=== PATIENT | male | born 1945 | race African-American/Black ===

== ENCOUNTER 2018-01-31 11:48 | Observation (INO) | payer MEDICARE ==
[2018-01-31 13:12] LABS: #Basophils 0.1 thou/uL (0.0-0.2); #Eosinphils 0.2 thou/uL (0.0-0.7); #Lymphocytes 2.2 thou/uL (1.20-3.40); #Monocytes 0.5 thou/uL (0.11-0.59); #Neutrophils 4.2 thou/uL (1.40-6.50); %Basophils 1.2 % (0.0-1.0); %Eosinophils 2.3 % (0.0-10.0); %Lymphocytes 31.2 % (21.0-51.0); %Monocytes 6.7 % (0.0-10.0); %Neutrophils 58.6 % (42.0-75.0); Hemoglobin 13.6 g/dL (14.0-18.0); Mean Corpuscular HGB CONC 33.1 g/dL (32.0-36.0); Mean Corpuscular Hemoglobin 30.5 pg (27.0-31.0); Mean Corpuscular Volume 92.3 fl (80.0-94.0); Mean Platelet Volume 7.1 fL (7.4-10.4); Platelet Count 256 thou/uL (130-400); RBC Distribution Width 12.9 % (11.5-14.5); Red Blood Cell (RBC) Count 4.46 mill/uL (4.70-6.10); White Blood Cell (WBC) Count 7.1 thou/uL (4.8-10.8)
[2018-01-31 13:31] LABS: CKMB 0.8 ng/mL (0-6.6); Troponin I Less than 0.010 ng/mL (< 0.028)
[2018-01-31 13:38] LABS: ALT (SGPT) 25 U/L (8-55); AST (SGOT) 20 U/L (5-34); Albumin 3.9 g/dL (3.4-4.8); Alkaline Phosphatase 81 U/L (40-150); Anion Gap 11 mmol/L (10-20); BUN (Urea Nitrogen) 14 mg/dL (8.4-25.7); Bilirubin, Total 0.5 mg/dL (0.2-1.2); CK (CPK) 96 U/L (30-200); Calc. Creatinine Clearance 0 mL/min (70-130); Calcium 9.1 mg/dL (7.8-10.44); Carbon Dioxide 24 mmol/L (23-31); Chloride 106 mmol/L (98-107); Estimated GFR-MDRD Greater than 90; Globulin 2.3 g/dL (2.4-3.5); Glucose 118 mg/dL (83-110); Lipase 28 U/L (8-78); Potassium 3.6 mmol/L (3.5-5.1); Protein, Total 6.2 g/dL (5.8-8.1); Sodium 137 mmol/L (136-145)
[2018-01-31 14:28] LABS: Bilirubin Negative (Negative); Blood, Urine Negative (Negative); Clarity CLEAR (Clear); Glucose, Urine (Dipstick) Negative (Negative); Leukocyte Negative (Negative); Nitrite Negative (Negative); Protein, Urine (Dipstick) Negative (Neg-Trace); Specific Gravity, Urine 1.012 (1.002-1.036); Urobilinogen 0.2 mg/dL (0.2-1.0)
--- NOTE | 2018-01-31 14:36 | CT ---
HEAD CT WITHOUT CONTRAST: Date: 01/31/18 COMPARISON: None. HISTORY: Intermittent headaches with dizziness and weakness. TECHNIQUE: Serial axial CT imaging at 5 mm intervals from vertex through skull base without contrast. FINDINGS: The imaged paranasal sinuses/mastoid air cells are well aerated. There is no displaced calvarial frac ture. There is atherosclerotic calcification involving the cavernous carotid arteries. There is no intracra nial hemorrhage, midline shift, mass effect, or ventricular enlargement. IMPRESSION: No acute findings. POS: [facility]
[2018-01-31] MEDS ORDERED: Acetaminophen 325 MG TAB PO PRN ×2 (14:38→15:21)
--- NOTE | 2018-01-31 14:43 | RAD ---
PORTABLE CHEST: Date: 01/31/18 HISTORY: Syncope. COMPARISON: 04/26/15 study. FINDINGS: Heart size is within normal limits. Aorta is tortuous with some atherosclerotic change. Lungs are ashu ar of infiltrates. IMPRESSION: No active intrathoracic disease. POS: [facility]
[2018-01-31 16:24] VITALS: BMI 25.0
[2018-01-31] MEDS ORDERED: Ondansetron HCl/PF 4 MG/2 ML Vial IVP PRN (16:37)
[2018-01-31] MEDS ORDERED: Ondansetron ODT 4 MG TAB SL PRN (16:37)
[2018-01-31 17:05] LABS: Troponin I Less than 0.010 ng/mL (< 0.028)
[2018-01-31 19:54] LABS: Troponin I Less than 0.010 ng/mL (< 0.028)
[2018-01-31] MEDS ORDERED: Aspirin 81 mg Enteric Coated Tablet PO SCH (21:00)
[2018-01-31] MEDS ORDERED: Atorvastatin Calcium 40 MG TAB PO SCH (21:00)
[2018-01-31] MEDS ORDERED: Acetaminophen 325 MG TAB PO SCH (21:00)
[2018-02-01 05:15] LABS: Anion Gap 10 mmol/L (10-20); BUN (Urea Nitrogen) 12 mg/dL (8.4-25.7); Calc. Creatinine Clearance 78 mL/min (70-130); Calcium 8.5 mg/dL (7.8-10.44); Carbon Dioxide 25 mmol/L (23-31); Chloride 109 mmol/L (98-107); Estimated GFR-MDRD Greater than 90; Glucose 93 mg/dL (83-110); Potassium 3.5 mmol/L (3.5-5.1); Sodium 140 mmol/L (136-145)
[2018-02-01] MEDS ORDERED: Senokot 8.6 MG TAB PO PRN (07:52)
[2018-02-01] MEDS ORDERED: Chloraseptic Spray 180 ml Bottle PO PRN (07:52)
[2018-02-01] MEDS ORDERED: Sodium Chloride 0.65% Nasal 44 ML BOT EA NARE PRN (07:52)
[2018-02-01] MEDS ORDERED: Ondansetron ODT 4 MG TAB PO PRN (07:52)
[2018-02-01] MEDS ORDERED: Ondansetron HCl/PF 4 MG/2 ML Vial IVP PRN (07:52)
[2018-02-01] MEDS ORDERED: Mag-Al 1200 mg/1200 mg/30 ML UDCUP PO PRN (07:52)
[2018-02-01] MEDS ORDERED: Eucerin (Mineral Oil/Petrolatum,White) 30 gm Jar TOP PRN (07:52)
[2018-02-01] MEDS ORDERED: hydrALAZINE 20 MG/ML VIAL SLOW IVP PRN (07:52)
[2018-02-01] MEDS ORDERED: Temazepam 15 MG CAP PO PRN (07:52)
[2018-02-01] MEDS ORDERED: HYDROcodone/Acetaminophen 5/325 mg Tablet PO PRN (07:52)
[2018-02-01] MEDS ORDERED: Milk Of Magnesia 30 ML UDCUP PO PRN (07:52)
[2018-02-01] MEDS ORDERED: Diabetic Tussin 200 MG/10 ML UDCUP PO PRN (07:52)
[2018-02-01] MEDS ORDERED: Famotidine 20 MG TAB PO SCH (09:00)
[2018-02-01] MEDS ORDERED: Amlodipine 10 MG TAB PO SCH (09:00)
[2018-02-01] MEDS ORDERED: levETIRAcetam 500 MG TAB PO SCH (09:00)
[2018-02-01] MEDS ORDERED: Losartan 25 MG TAB PO SCH (09:00)
--- NOTE | 2018-02-01 09:07 | CON ---
DATE OF CONSULTATION: 02/01/2018 CONSULTING PHYSICIAN: Hospitalist Service IMPRESSION: New onset seizure. PLAN: 1. MRI of the brain. 2. Keppra 500 mg twice a day. 3. Outpatient followup. Mr. Chávez is a 72-year-old man with history of coronary artery disease. He was at the [employer] shop sit ting in the chair when he suddenly lost consciousness. Witnesses report that his eyes rolled up and he had what appeared to be a tonic clonic seizure. He did not awaken until the EMS had arrived. He was transported here for evaluation. A CT scan of the brain was unremarkable. His lab work was unre markable as well. He has never had anything like this in the past. He denies a past history of head injury, meningitis, encephalitis or stroke. PAST MEDICAL HISTORY: Coronary artery disease. ALLERGIES: PENICILLIN. MEDICATIONS: As per chart. SOCIAL HISTORY: No tobacco or alcohol use. FAMILY HISTORY: Noncontributory. REVIEW OF SYSTEMS: No complaint of nausea, vomiting, dizziness, blurred vision, double vision, later alized weakness or numbness. Positive for some intermittent shooting pains in his head. PHYSICAL EXAMINATION: GENERAL: He is a healthy appearing elderly man in no distress. VITAL SIGNS: Pulse 60, respirations 16. He is afebrile. HEENT: Pupils equal and reactive. Conjunctivae clear. Oropharynx clear. NEUROLOGIC: He is alert and appropriate. His speech is fluent and clear. His exam is nonfocal. EKG shows normal sinus rhythm. SUMMARY: This is an elderly gentleman who presented with a generalized tonic clonic seizure. There does not appear to be any provoking factors, no structural etiology has been identified at this point . There does not appear to be an infectious process or metabolic etiology. Given that he is very ac tive and on the road on a regular basis I would go ahead and start him on anticonvulsant and complete his work up with an MRI of the brain.
[2018-02-01] MEDS: Carvedilol 3.125 MG TAB PO SCH ×2 (09:19→17:10)
--- NOTE | 2018-02-01 09:44 | ULT ---
CAROTID DUPLEX ULTRASOUND: INDICATIONS: Syncope. FINDINGS: The carotid waveforms appear within normal limits. The peak systolic velocity within the right CCA i s 0.99 meters per second and in the left CCA is 0.81 meters per second. The peak systolic velocity i n the right ICA is 0.94 meters per second and in the left ICA is 0.66 meters per second. The right ICA/CCA is 0.95 and the left is 0.82. Antegrade flow is seen in both vertebral arteries. IMPRESSION: No hemodynamically significant stenosis demonstrated. POS: [facility]
[2018-02-01 11:36] VITALS: TEMP 97.5
--- NOTE | 2018-02-01 11:47 | PDOC.PN ---
- Subjective Encounter Start Date: 02/01/18 Encounter Start Time: 07:20 Patient seen and examined. No new complaints. No overnight events - Objective MAR Reviewed: Yes Vital Signs & Weight: Vital Signs (12 hours) Temp Pulse Resp BP BP Pulse Ox 02/01/18 11:05 97.5 F L 62 18 153/77 H 99 02/01/18 09:19 76 183/79 H 02/01/18 07:08 97.9 F 76 20 183/79 H 96 02/01/18 04:00 97.8 F 61 18 141/84 H 95 02/01/18 00:18 94 L Weight Weight 150 lb 11.2 oz I&O: 01/31/18 02/01/18 02/02/18 06:59 06:59 06:59 Intake Total 620 Balance 620 Result Diagrams: 01/31/18 12:53 02/01/18 04:48 Radiology Reviewed by me: Yes EKG Reviewed by me: Yes Phys Exam - Physical Examination Constitutional: NAD HEENT: PERRLA, moist MMs, sclera anicteric Neck: no JVD, supple Respiratory: no wheezing, no rales, no rhonchi Cardiovascular: RRR, no significant murmur, no rub Gastrointestinal: soft, non-tender, no distention, positive bowel sounds Musculoskeletal: no edema, pulses present Neurological: non-focal, normal sensation, moves all 4 limbs Lymphatic: no nodes Psychiatric: normal affect, A&O x 3 Skin: no rash, normal turgor Dx/Plan (1) Seizure Code(s): R56.9 - UNSPECIFIED CONVULSIONS Status: Acute (2) Syncope Code(s): R55 - SYNCOPE AND COLLAPSE Status: Acute (3) CAD (coronary artery disease) Code(s): I25.10 - ATHSCL HEART DISEASE OF [place] CORONARY ARTERY W/O ANG PCTRS Status: Chronic (4) Dyslipidemia Code(s): E78.5 - HYPERLIPIDEMIA, UNSPECIFIED Status: Chronic (5) Hypertension Code(s): I10 - ESSENTIAL (PRIMARY) HYPERTENSION Status: Chronic - Plan cont current plan of care * neurology suspecting seizure, keppra started * today EEG, MRI and echo * carotid us is normal * discharge later today * medication reviewed as below * symptomatic treatment * resume home meds. Review of Systems - Review of Systems ENT: negative: Ear Pain, Ear Discharge, Nose Pain, Nose Discharge, Nose Congestion, Mouth Pain, Mouth Swelling, Throat Pain, Throat Swelling, Other Respiratory: negative: Cough, Dry, Shortness of Breath, Hemoptysis, SOB with Excertion, Pleuritic Pain, Sputum, Wheezing Cardiovascular: negative: chest pain, palpitations, orthopnea, paroxysmal nocturnal dyspnea, edema, light headedness, other Gastrointestinal: negative: Nausea, Vomiting, Abdominal Pain, Diarrhea, Constipation, Melena, Hematochezia, Other Genitourinary: negative: Dysuria, Frequency, Incontinence, Hematuria, Retention , Other Musculoskeletal: negative: Neck Pain, Shoulder Pain, Arm Pain, Back Pain, Hand Pain, Leg Pain, Foot Pain, Other Skin: negative: Rash, Lesions, Chapo, Bruising, Other Neurological: negative: Weakness, Numbness, Incoordination, Change in Speech, Confusion, Seizures, Other - Medications/Allergies Allergies/Adverse Reactions: Allergies Allergy/AdvReac Type Severity Reaction Status Date / Time Penicillins Allergy Verified 01/17/15 12:04 Medications: Current Medications Acetaminophen (Tylenol) 650 mg PO Q4H PRN PRN Reason: Headache/Fever or Mild Pain Hydrocodone Bitart/Acetaminophen ([place] 5/325) 1 tab PO Q4H PRN PRN Reason: Moderate Pain (4-6) Al Hydroxide/Mg Hydroxide (Maalox) 15 ml PO Q4H PRN PRN Reason: Heartburn or Indigestion Amlodipine Besylate (Norvasc) 10 mg PO DAILY [facility] Last Admin: 02/01/18 09:19 Dose: 10 mg Aspirin (Ecotrin) 81 mg PO [facility] Last Admin: 01/31/18 21:18 Dose: 81 mg Atorvastatin Calcium (Lipitor) 80 mg PO [facility] Last Admin: 01/31/18 21:18 Dose: 80 mg Carvedilol (Coreg) 1.5625 mg PO BID-[facility] Last Admin: 02/01/18 09:19 Dose: 1.5625 mg Famotidine (Pepcid) 20 mg PO BID [facility] Last Admin: 02/01/18 09:19 Dose: 20 mg Guaifenesin (Robitussin Sf) 200 mg PO Q4H PRN PRN Reason: Cough Hydralazine HCl (Apresoline) 10 mg SLOW IVP Q4H PRN PRN Reason: Systolic BP > 180 Isosorbide Mononitrate (Imdur) 30 mg PO DAILY [facility] Last Admin: 02/01/18 09:19 Dose: 30 mg Levetiracetam (Keppra) 500 mg PO BID [facility] Last Admin: 02/01/18 11:34 Dose: 500 mg Losartan Potassium (Cozaar) 100 mg PO DAILY [facility] Last Admin: 02/01/18 09:18 Dose: 100 mg Magnesium Hydroxide (Milk Of Magnesium) 30 ml PO DAILYPRN PRN PRN Reason: Constipation Mineral Oil/White Petrolatum (Eucerin Cream) 0 gm TOP BIDPRN PRN PRN Reason: Dry Skin Ondansetron HCl (Zofran Odt) 4 mg PO Q6H PRN PRN Reason: Nausea/Vomiting Ondansetron HCl (Zofran) 4 mg IVP Q6H PRN PRN Reason: Nausea/Vomiting Phenol (Chloraseptic [place] 180 Ml Bot) 0 ml PO PRN PRN PRN Reason: Sore Throat Senna (Senokot) 2 tab PO HSPRN PRN PRN Reason: Constipation Sodium Chloride ([place] Nasal [place] 0.65%) 0 ml EA NARE QIDPRN PRN PRN Reason: Nasal Congestion Sodium Chloride (Flush - Normal Saline) 10 ml IVF Q12HR [facility] Last Admin: 02/01/18 09:23 Dose: 10 ml Sodium Chloride (Flush - Normal Saline) 10 ml IVF PRN PRN PRN Reason: Saline Flush Temazepam (Restoril) 15 mg PO HSPRN PRN PRN Reason: Insomnia
[2018-02-01 12:05] VITALS: BP 132/75
--- NOTE | 2018-02-01 12:56 | MRI ---
BRAIN MRI WITH AND WITHOUT CONTRAST: 02/01/2018 HISTORY: Syncope. Possible new onset seizures. COMPARISON: None. TECHNIQUE: Multiplanar, multisequence MR imaging of the brain is obtained with and without contrast, using a sei zure protocol. FINDINGS: The diffusion weighted imaging is limited secondary to artifact from oral metal. There is a vague fo cus of increased signal intensity within the dora, on the diffusion weighted imaging, which could rep resent a tiny focus of acute infarction, on the left, versus artifact. Diffusion weighted imaging is otherwise unremarkable. There is mild polypoid mucosal thickening involving the anterior ethmoid air cells on the left and th e left maxillary sinus. Arterial flow voids at the axial level of the skull base appear grossly unre markable on the T2 weighted imaging. Coronal thin section T1 weighted imaging through the hippocampi demonstrate symmetric structure, sign al intensity, and size of the hippocampi. The coronal gradient echo imaging demonstrates no evidence for blooming artifact to suggest abnormal calcification or intracranial hemorrhage. There is degenerative change at the atlantoaxial interspace. Regional bone marrow signal intensity a ppears grossly unremarkable. There are scattered foci of periventricular and deep white matter T2 and FLAIR hyperintensity, eviden ce of small vessel disease. Post contrast imaging demonstrates no abnormal enhancement within the brain parenchyma. IMPRESSION: Punctate focus of increased signal intensity is seen at the left aspect of the dora on the diffusion- weighted imaging; however, the diffusion-weighted imaging is limited on the basis of artifact. This finding may represent a punctate area of infarction versus artifact. Clinical correlation is sanjay nunez. The study appears grossly unremarkable, otherwise, aside from small vessel disease. POS: [facility]
--- NOTE | 2018-02-01 13:06 | DIS ---
DATE OF ADMISSION: 01/31/2018 DATE OF DISCHARGE: 02/01/2018 PRIMARY CARE PHYSICIAN: Dr. Randy Hilario DISCHARGE DISPOSITION: Home. PRIMARY DISCHARGE DIAGNOSIS: Seizure/syncope. SECONDARY DISCHARGE DIAGNOSES: Coronary artery disease, hypertension, dyslipidemia. PRIMARY PROCEDURE/OPERATION: EEG. RADIOLOGICAL INVESTIGATION: Chest x-ray, CT brain, MRI brain, carotid Doppler, and echocardiography will be done and result is pending. SIGNIFICANT LABS: Hemoglobin 13.6, creatinine 0.80. Cardiac enzymes negative x3. Urinalysis normal . DISCHARGE MEDICATIONS: Tylenol 650 mg p.o. b.i.d., amlodipine 10 mg p.o. daily, aspirin 81 mg p.o. d aily, Lipitor 80 mg p.o. at bedtime, Coreg 3.125 mg half tablet b.i.d., Imdur 30 mg p.o. daily, Keppr a 500 mg p.o. b.i.d., losartan 100 mg p.o. daily. CONTRAINDICATIONS: None. CODE STATUS: FULL CODE. INPATIENT CONSULTANTS: Dr. Ramon Green was consulted, who was suspecting seizure. TEST RESULTS PENDING ON DISCHARGE: Echocardiography. Official report of MRI brain. DISCHARGE PLAN: Post hospital, the patient is instructed to follow up with Dr. Ramon Green in 1 wee k. The patient will make appointment with primary care physician. HOSPITAL COURSE: A 72-year-old male who was admitted by Dr. Patterson. There is no H&P dictated by him at this point in the computer system, but based on my history, the patient was admitted for sync opal episode/seizure. We consulted Neurology. Initially, he had CT brain which was negative for any acute intracranial process. Chest x-ray was normal. Neurology was suspecting a seizure-type of act ivity and that is why they started Keppra. We did MRI brain which is essentially unremarkable. [place] tid Doppler is also unremarkable. We did an EEG official report is pending. Echocardiography will b e done before discharge and the patient is instructed to follow up on all test results with the [facility] as well as Neurology. He is pretty much stable. We are continuing all his home me dication. We are giving him a new prescription for Keppra as per Neurology. The patient is seen and examined at bedside today. Please see my progress note from today for furthe r detail. For H&P, we have to contact Dr. Patterson to dictate this patient's H and P.
--- NOTE | 2018-02-02 00:38 | HP ---
CHIEF COMPLAINT: Mental status change with possible new-onset seizure. HISTORY OF PRESENT ILLNESS: This is a 72-year-old gentleman with a past medical history significant for coronary artery disease, status post stents, who was in his nephew[employer] and subsequently lost consciousness and with jerky movements according to the people who would have witnessed the epi sode. Patient on recovery was slightly confused and noted a little bit of urinary incontinence, othe rwise, patient recovered fully. Patient has never had similar symptoms in the past except about 30 t o 40 years ago in the context of alcohol binge. Patient on presentation was noted to be hemodynamica lly stable. Initial evaluation of the brain is pretty much unremarkable. PAST MEDICAL HISTORY: As documented in the body of the history. ALLERGIES: PENICILLIN. MEDICATIONS: As documented in the datango. SOCIAL HISTORY: No alcohol, no tobacco, no illicit drug use. FAMILY HISTORY: No family history of seizure disorder. REVIEW OF SYSTEMS: As documented in the body of the history. All the other systems were reviewed an d found not to be significantly related to the presenting illness. LABORATORY INVESTIGATION: Unremarkable CBC. Chemistry is unremarkable. Urine tests are unremarkab le. Prolactin level, unremarkable. PHYSICAL EXAMINATION: GENERAL: Patient was found not to be in any obvious distress, nice gentleman who engaged in discussi on noted with the following vital signs. VITAL SIGNS: Afebrile with temperature 98.2, pulse 64, respiratory 16, O2 sat 98% with blood pressur e 155/83. HEENT: Unremarkable. Moist oral mucosa. NECK: Supple. No conjunctival injection or icterus. CARDIOVASCULAR SYSTEM: First and second heart sounds were heard. RESPIRATORY SYSTEM: Clear to auscultation. DIGESTIVE SYSTEM: Revealed a benign abdomen with positive bowel sounds. EXTREMITIES: No peripheral edema. SKIN: No new gross rash. LYMPHATICS: No peripheral lymphadenopathy. NEUROLOGIC: Alert and oriented. No lateralizing sign. IMPRESSION: 1. New-onset seizure, query cause. 2. History of coronary artery disease. 3. Vasculopathy. PLAN: 1. Patient has already been admitted, we will request for EEG, as the imaging studies so far has bee n unremarkable. 2. Neurology consultation. 3. Further management to be dependent on the clinical course as well as further recommendations from Neurology. We will defer the decision of seizure medications to Neurology.
--- NOTE | 2018-02-05 10:36 | EEG ---
Referring Physician: HAROON ESPINOZA EEG # [id number] TEST TYPE: ROUTINE PORTABLE INPATIENT REPORT: AN EEG USING THE INTERNATIONAL TEN-TWENTY SYSTEM OF ELECTRODE PLACEMENT WAS PERFORMED. The waking background is a 9 hertz alpha frequency. The patient remained awake throughout the study. Hyperventilation and photic stimulation were unremarkable. No epileptiform features were seen. IMPRESSION: THIS IS A NORMAL AWAKE EEG. Department Helper: MARISEL Painter Helper: [email or web address].LILY MUKHERJEE
== END 2018-02-01 18:47 | disposition home or self-care (01) ==
LOC: ERS 11:48 → 2SE 14:13
PROVIDERS: ADMIT Internal Medicine Nephrology; ATTEND Internal Medicine Nephrology
DX: G40.309 Generalized idiopathic epilepsy and epileptic syndromes, not intractable, without status epilepticus (principal); R55 Syncope and collapse; I25.10 Atherosclerotic heart disease of native coronary artery without angina pectoris; I10 Essential (primary) hypertension; E78.5 Hyperlipidemia, unspecified; I99.8 Other disorder of circulatory system; Z79.82 Long term (current) use of aspirin; Z79.899 Other long term (current) drug therapy; Z88.0 Allergy status to penicillin; Z98.890 Other specified postprocedural states
CPT/HCPCS: 70450; 70553; 71045; 80048; 80053; 81003; 82140; 82550; 82553; 83690; 83880; 84146; 84484 ×2; 85025; 85652; 86140; 93005; 93306; 93880; 95816; 95819; 96360; 97139 ×2; 99285; G0378; 36415

== ENCOUNTER 2018-03-08 06:53 | Day surgery (SDC) | payer MEDICARE ==
[2018-03-07 11:41] VITALS: BMI 25.1
[2018-03-08 08:03] LABS: Hemoglobin 14.8 g/dL (14.0-18.0); Mean Corpuscular HGB CONC 32.9 g/dL (32.0-36.0); Mean Corpuscular Hemoglobin 30.7 pg (27.0-31.0); Mean Corpuscular Volume 93.3 fl (80.0-94.0); Mean Platelet Volume 7.7 fL (7.4-10.4); Platelet Count 257 thou/uL (130-400); RBC Distribution Width 12.8 % (11.5-14.5); Red Blood Cell (RBC) Count 4.83 mill/uL (4.70-6.10)
[2018-03-08 08:04] LABS: INR-International Normal Ratio 1.1; PTT 29.5 SEC (22.9-36.1)
[2018-03-08 08:15] LABS: Anion Gap 12 mmol/L (10-20); BUN (Urea Nitrogen) 8 mg/dL (8.4-25.7); Calc. Creatinine Clearance 76 mL/min (70-130); Calcium 9.3 mg/dL (7.8-10.44); Carbon Dioxide 26 mmol/L (23-31); Chloride 108 mmol/L (98-107); Estimated GFR-MDRD Greater than 90; Glucose 90 mg/dL (83-110); Potassium 3.6 mmol/L (3.5-5.1); Sodium 142 mmol/L (136-145)
[2018-03-08] MEDS ORDERED: Lidocaine 1% (PF) 30 ML VIAL ONE (09:22)
[2018-03-08] MEDS ORDERED: Fentanyl 100 MCG/2 ML VIAL ONE (09:55)
[2018-03-08] MEDS ORDERED: Midazolam HCl 2 mg/2 ml Vial ONE (09:55)
--- NOTE | 2018-03-08 14:07 | EKG ---
Test Reason : PREOP Blood Pressure : / mmHG Vent. Rate : 061 BPM Atrial Rate : 061 BPM P-R Int : 176 ms QRS Dur : 092 ms QT Int : 418 ms P-R-T Axes : 056 010 052 degrees QTc Int : 420 ms Normal sinus rhythm Possible Inferior infarct (cited on or before 10-NOV-2013) Abnormal ECG Confirmed by CARLEE PINTO ([id number]) on 03/08/2018 2:06:39 PM Referred By: MANJINDER Confirmed By:CARLEE PINTO
== END 2018-03-08 13:45 | disposition home or self-care (01) ==
LOC: CCL 06:53
PROVIDERS: ATTEND Internal Medicine Cardiovascular Disease
PROC: 4A023N7 Measurement of Cardiac Sampling and Pressure, Left Heart, Percutaneous Approach (ICD-10-PCS; principal; 2018-03-08)
DX: I25.10 Atherosclerotic heart disease of native coronary artery without angina pectoris (principal); Z88.0 Allergy status to penicillin
CPT/HCPCS: 80048; 85027; 85610; 85730; 93005; 93458; C1769; 93010; 99152; J1644; J2001; J2250; J3010

== ENCOUNTER 2018-09-03 15:16 | Inpatient (IN) | payer MEDICARE ==
[2018-09-03 15:52] LABS: #Eosinphils 0.1 thou/uL (0.0-0.7); #Lymphocytes 1.8 thou/uL (1.20-3.40); #Monocytes 0.7 thou/uL (0.11-0.59); #Neutrophils 7.6 thou/uL (1.40-6.50); %Basophils 0.5 % (0.0-1.0); %Eosinophils 1.1 % (0.0-10.0); %Lymphocytes 17.6 % (21.0-51.0); %Monocytes 6.4 % (0.0-10.0); %Neutrophils 74.4 % (42.0-75.0); Hemoglobin 14.9 g/dL (14.0-18.0); Mean Corpuscular HGB CONC 32.2 g/dL (32.0-36.0); Mean Corpuscular Hemoglobin 30.8 pg (27.0-31.0); Mean Corpuscular Volume 95.6 fL (78.0-98.0); Mean Platelet Volume 7.2 fL (7.4-10.4); Platelet Count 272 thou/uL (130-400); RBC Distribution Width 13.3 % (11.5-14.5); Red Blood Cell (RBC) Count 4.85 mill/uL (4.70-6.10); White Blood Cell (WBC) Count 10.2 thou/uL (4.8-10.8)
[2018-09-03] MEDS ORDERED: Nitroglycerin 2% Ointment 1 INCH/1 GM Packet ONE (15:57)
[2018-09-03 16:11] LABS: ALT (SGPT) 37 U/L (8-55); AST (SGOT) 24 U/L (5-34); Albumin 4.1 g/dL (3.4-4.8); Alkaline Phosphatase 119 U/L (40-150); Anion Gap 9 mmol/L (10-20); BUN (Urea Nitrogen) 10 mg/dL (8.4-25.7); Bilirubin, Total 0.2 mg/dL (0.2-1.2); CK (CPK) 81 U/L (30-200); Calc. Creatinine Clearance 0 mL/min (70-130); Calcium 9.1 mg/dL (7.8-10.44); Carbon Dioxide 27 mmol/L (23-31); Chloride 104 mmol/L (98-107); Estimated GFR-MDRD Greater than 90; Globulin 2.8 g/dL (2.4-3.5); Glucose 92 mg/dL (83-110); Magnesium 2.3 mg/dL (1.6-2.6); Potassium 3.7 mmol/L (3.5-5.1); Protein, Total 6.9 g/dL (5.8-8.1); Sodium 136 mmol/L (136-145)
[2018-09-03 16:16] LABS: Troponin I Less than 0.010 ng/mL (< 0.028)
--- NOTE | 2018-09-03 17:24 | RAD ---
UPRIGHT PORTABLE CHEST 1 VIEW: Date: 09/03/18 HISTORY: 73-year-old male with history of dizziness. Left-sided chest pressure and nausea. COMPARISON: 01/31/18. FINDINGS: Monitor leads overlie the chest. Heart size within normal limits. The lungs are clear. IMPRESSION: No acute intrathoracic disease. Atherosclerosis of aorta. Stable from prior study. POS: [facility]
--- NOTE | 2018-09-03 17:33 | CT ---
BRAIN CT WITHOUT IV CONTRAST: 09/03/18 HISTORY: Hypertension, dizziness for two days, stroke. There is no focal mass or midline shift. No intra or extra-axial hemorrhage. Sinuses and mastoids are clear. No significant change from 01/31/18. IMPRESSION: No significant acute intracranial process. No mass or bleed. POS: [facility]
[2018-09-03 18:26] LABS: Bilirubin Negative (Negative); Blood, Urine Negative (Negative); Clarity CLEAR (Clear); Glucose, Urine (Dipstick) Negative (Negative); Leukocyte Negative (Negative); Nitrite Negative (Negative); Protein, Urine (Dipstick) Negative (Neg-Trace); Specific Gravity, Urine 1.009 (1.002-1.036); Urobilinogen 0.2 mg/dL (0.2-1.0)
[2018-09-03] MEDS ORDERED: Labetalol HCl 100 MG/20 ML VIAL SLOW IVP PRN (18:59)
[2018-09-03 19:14] LABS: Troponin I Less than 0.010 ng/mL (< 0.028)
[2018-09-03 20:09] VITALS: BMI 24.2
[2018-09-03] MEDS ORDERED: Acetaminophen 325 MG TAB PO PRN (20:32)
[2018-09-03 22:24] LABS: Troponin I Less than 0.010 ng/mL (< 0.028)
[2018-09-03] MEDS ORDERED: Carvedilol 3.125 MG TAB PO SCH (23:30)
[2018-09-03] MEDS ORDERED: Acetaminophen 500 MG TAB PO SCH (23:30)
[2018-09-03] MEDS ORDERED: Atorvastatin Calcium 40 MG TAB PO SCH (23:30)
--- NOTE | 2018-09-04 01:04 | HP ---
CHIEF COMPLAINT: Vertigo. HISTORY OF PRESENT ILLNESS: Patient is a 73-year-old male with a history of coronary artery disease followed by Dr. Figueroa. He was also admitted here back in January with what was thought to be possibly a seizure disorder. He was started on some Keppra and had an MRI of the brain which did not reveal any substantial findings. He also had an EEG, which was negative. The patient reports he has been i n his usual state of health until yesterday. He reports at that time awoke feeling significant true vertigo. The patient took his medications tried sitting in his recliner and be still, but his sympto ms did not elie with that. They did ease off by the early afternoon. He felt generally good throug hout the rest of the day, but this morning he awoke with similar symptoms and they were not going rachel y as they did yesterday. Therefore, he presented to the emergency department. He called EMS and on arrival, he had blood pressure readings of 210/99. He was given a dose of labetalol en route. EMS i ndicated that the patient had some chest pressure and nausea per their report that had resolved. He did not report any of that to me directly. He could not find any specific alleviating or exacerbatin g factors. Did not have any nausea, vomiting, and states he is actually feeling pretty well, present ly. REVIEW OF SYSTEMS: A 10-system review was negative except for those things mentioned in the history of present illness. PAST MEDICAL HISTORY: Notable for coronary artery disease with several stents and then recurrent in- stent stenosis apparently requiring subsequent angioplasty. The patient again was admitted here in [facility]. At that time, he had consultation by Neurology and MRI of the brain, follow up EEG, and caroti d Dopplers, all of which were generally unremarkable. He also has hypertension, hyperlipidemia. FAMILY HISTORY: No significant history of coronary artery disease, cancer or neurological disease. SOCIAL HISTORY: No alcohol, tobacco, or drugs. The patient is a DNR. ALLERGIES: PENICILLIN. CURRENT MEDICATIONS: The patient is unaware of his medication list. At the time of his discharge pr eviously he was on multivitamin, Cozaar, Imdur, Plavix, Coreg, Lipitor, aspirin, Norvasc, and Tylenol . Working to get a potential list from his pharmacy, which is [facility] in [place]. The patient had been on Keppra as well, but does not believe he is continuing on that at this time. PHYSICAL EXAMINATION: VITAL SIGNS: Temperature is 98.0, pulse 68, respirations 16, O2 sat 100% on room air, BP 159/95. GENERAL APPEARANCE: Age appropriate male in no distress. He is awake, alert, oriented, pleasant, co operative, no distress. HEENT: PERRL. No OP lesions. NECK: Supple and symmetric. HEART: Regular rate and rhythm without murmurs, gallops or rubs. LUNGS: Clear to auscultation bilaterally with good chest wall expansion and air exchange. ABDOMEN: Soft, nontender, nondistended, positive bowel sounds, no masses, no organomegaly. EXTREMITIES: Warm, dry. No cyanosis, clubbing, or edema. LABORATORY DATA AND IMAGING DATA: White count 10.2, hemoglobin 14.9, platelet count 272. Chemistrie s are normal with urinalysis negative. Chest x-ray is normal and brain CT shows no acute findings. ASSESSMENT AND PLAN: 1. Recurrent vertigo that does not appear to be positional in a patient with known history of vascul ar disease. Patient was evaluated in January with negative carotid Dopplers and MRI of the brain. Thi s appears to be more of a posterior circulation type issue. So, we will get CTA of the head and neck . It is also possible this was related to hypertensive urgency. The patient received treatment for that. His blood pressure is improved as are his symptoms. We will reassess how he is in the morning . 2. Hypertensive urgency. The patient received hydralazine and nitro paste in the ER, seems to be im proving his pressure and his symptoms. We will continue to monitor. 3. History of coronary artery disease. The patient reported some vague symptoms of chest pressure, which he did not report to me. He has had 2 negative troponins. At this point, his EKG did not faheem aurelia any acute ischemic issues. We will go ahead and consult Dr. Figueroa partially at the patient's r equest because of his concerns about his medications related to his heart. 4. Hyperlipidemia. We will continue his statin once we know his actual medication regimen.
[2018-09-04] MEDS ORDERED: Acetaminophen 500 MG TAB PO SCH (09:00)
[2018-09-04] MEDS ORDERED: Carvedilol 3.125 MG TAB PO SCH (09:00)
--- NOTE | 2018-09-04 09:53 | CT ---
NONCONTRAST ENHANCED CT IMAGES OF BRAIN WELL CONTRAST-ENHANCED CTA OF NECK AND INTRACRANIAL CTA : Two-D and 3d reconstructed images performed on an independent 3D work station. HISTORY: Vertigo, hypertension. FINDINGS: Noncontrast-enhanced CT images of the brain demonstrate the brain to be unremarkable. No evidence of intracranial masses, hemorrhages, strokes, or contusions seen. Ventricles are of normal size. IMPRESSION: Normal CT brain. CAROTID CTA: The aortic arch is unremarkable. Right-sided brachiocephalic artery calcification is seen. There is some intimal thickening in the right and left common carotid arteries. There is some minimal caroti d bifurcation bilateral disease with no significant evidence of flow-limiting lesions. The right and left vertebral arteries are patent without evidence of significant stenosis. INTRACRANIAL CTA: The petrous and cavernous ICAs are patent. Supraclinoid ICAs are patent. The right and left middle cerebral arteries are patent without evidence of significant occlusion. The right and left intracere bral arteries are patent. The distal vertebral arteries as well as the basilar artery are patent without evidence of significan t stenosis. The right and left posterior cerebral arteries are patent. IMPRESSION: No significant evidence of flow-limiting lesions seen in the common carotid, internal carotid, or int racranial vessels. POS: [facility]
--- NOTE | 2018-09-04 10:01 | MRI ---
BRAIN MRI WITHOUT CONTRAST: DATE: 09/04/2018. COMPARISON: None. HISTORY: Hypertension and dizziness, vertigo, stroke. TECHNIQUE: Multiplanar, multisequence MR imaging of the brain is provided without contrast. FINDINGS: The diffusion weighted imaging demonstrates no evidence for acute infarction. The axial gradient echo imaging demonstrates no evidence for intracranial hemorrhage. There is mild polypoid mucosal thickening within the maxillary sinuses. Arterial flow voids at the axial level of the skull base appear grossly unremarkable on the T2 weight ed imaging. There is no midline shift, mass effect, or ventricular enlargement. Regional bone marrow signal intensity appears within normal limits. There are a few scattered foci of increased T2 and FLAIR signal within the periventricular deep and s ubcortical white matter suggesting a mild degree of small-vessel disease. IMPRESSION: No evidence for acute infarction. POS: [facility]
[2018-09-04 11:50] VITALS: BP 172/99; TEMP 98.5
[2018-09-04] MEDS ORDERED: Atorvastatin Calcium 40 MG TAB PO SCH (21:00)
--- NOTE | 2018-09-04 21:52 | DIS ---
DATE OF ADMISSION: 09/03/2018 DATE OF DISCHARGE: 09/04/2018 DISCHARGE DIAGNOSES: 1. Vertigo. 2. Hypertensive urgency. 3. History of coronary artery disease. 4. History of hyperlipidemia. HOSPITAL COURSE: The patient is a 73-year-old male who presented via the emergency department. The patient had awakened on two consecutive days with some vertigo. He felt better the first day after t aking his medicines and given a little bit of time, the second day it was not as bad, but he felt lik e it was more persistent, so he called an ambulance. He had elevated blood pressure at 210/99. Init ially, he received some IV Apresoline and in the emergency department, received some nitroglycerin. Patient had reports of some associated chest pressure as well. His initial workup was notable for so me lateral nystagmus on the ER physician exam. My initial exam failed to demonstrate any nystagmus a nd the patient was hesitant to look at his left side. 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 The patient had no other neurological findings. His initial labs were unremarkable. There was some concern the patient may have had some posterior circulation compromise. Therefore, he was placed in observation. HISTORY: The patient was placed in observation on telemetry. He had serial troponins which were all negative. His symptoms and his blood pressure were substantially better the next day, the patient h ad gotten up and walked downstairs to the gift shop on his own with no difficulties. He had a CTA of the head and neck which was unremarkable. MRI of the brain was unremarkable. Patient was therefore felt to be stable for discharge. PHYSICAL EXAMINATION: VITAL SIGNS: Temperature is 98.5, pulse 64, respirations 18, O2 sat 97%. His BP ranged from 140/78- 172/99. GENERAL: He was awake, alert, oriented, pleasant, cooperative. HEART: Regular rate and rhythm. LUNGS: Clear bilaterally. ABDOMEN: Benign. Neurologically, patient was fully intact with no deficits. DISPOSITION: The patient is discharged to home. He is to continue a regular diet. His activity lev el is as tolerated. He is to avoid driving until his symptoms have completely resolved. He will be on atorvastatin 80 mg at bedtime, Cozaar 100 mg daily, acetaminophen 650 p.r.n., aspirin 81 every day , Norvasc 10 mg every day, Coreg 3.25 b.i.d., Plavix 75 daily, acetaminophen just p.r.n., Dilantin 3 00 mg at bedtime. The patient is to follow up with Dr. Figueroa. He can also follow up with Dr. Lorenza odell as an outpatient and should follow up with his PCP, Dr. Randy Hilario in 7 days.
== END 2018-09-04 13:15 | disposition home or self-care (01) | DRG 149 ==
LOC: ERS 15:16 → 2SE 18:57
PROVIDERS: ADMIT Internal Medicine; ATTEND Internal Medicine
DX: R42 Dizziness and giddiness (principal); I16.0 Hypertensive urgency; I25.10 Atherosclerotic heart disease of native coronary artery without angina pectoris; E78.5 Hyperlipidemia, unspecified
CPT/HCPCS: 36415; 70450; 70496; 70498; 70551; 71045; 80053; 81003; 82550; 82553; 83735; 84484; 85025; 93005; 94760

== ENCOUNTER 2019-02-24 17:34 | Observation (INO) | payer MEDICARE ==
[~2019-02-24 17:34] MED LIST: ISOVUE-370 76%-LOCM 1 ML ONE
[2019-02-24 18:31] LABS: #Basophils 0.1 thou/uL (0.0-0.2); #Eosinphils 0.3 thou/uL (0.0-0.7); #Lymphocytes 1.7 thou/uL (1.20-3.40); #Monocytes 0.7 thou/uL (0.11-0.59); #Neutrophils 7.8 thou/uL (1.40-6.50); %Eosinophils 2.8 % (0.0-10.0); %Monocytes 6.8 % (0.0-10.0); %Neutrophils 73.3 % (42.0-75.0); Hemoglobin 14.7 g/dL (14.0-18.0); Mean Corpuscular HGB CONC 31.6 g/dL (32.0-36.0); Mean Corpuscular Hemoglobin 29.7 pg (27.0-31.0); Mean Corpuscular Volume 94.2 fL (78.0-98.0); Mean Platelet Volume 8.4 fL (7.4-10.4); Platelet Count 259 thou/uL (130-400); RBC Distribution Width 13.2 % (11.5-14.5); Red Blood Cell (RBC) Count 4.93 mill/uL (4.70-6.10); White Blood Cell (WBC) Count 10.7 thou/uL (4.8-10.8)
[2019-02-24 18:45] LABS: ALT (SGPT) 16 U/L (8-55); AST (SGOT) 15 U/L (5-34); Alkaline Phosphatase 98 U/L (40-150); Anion Gap 13 mmol/L (10-20); BUN (Urea Nitrogen) 12 mg/dL (8.4-25.7); Bilirubin, Total 0.7 mg/dL (0.2-1.2); CK (CPK) 115 U/L (30-200); Calc. Creatinine Clearance 0 mL/min (70-130); Calcium 9.2 mg/dL (7.8-10.44); Carbon Dioxide 25 mmol/L (23-31); Chloride 107 mmol/L (98-107); Estimated GFR-MDRD Greater than 90; Globulin 2.6 g/dL (2.4-3.5); Glucose 90 mg/dL (83-110); Potassium 3.4 mmol/L (3.5-5.1); Protein, Total 6.6 g/dL (5.8-8.1); Sodium 142 mmol/L (136-145)
--- NOTE | 2019-02-24 19:21 | RAD ---
CHEST ONE VIEW: History: Syncope Comparison: 09-03-18 FINDINGS: Heart size is within normal limits. Aorta is mildly tortuous. The lungs are clear of any infiltrates. IMPRESSION: No active intrathoracic disease. POS: KIAN
--- NOTE | 2019-02-24 19:45 | CT ---
EXAM: Brain CT scan Without contrast: HISTORY: Syncope COMPARISON: 09/03/2018 FINDINGS: Atrophy and chronic white matter ischemic change. No focal mass or midline shift. No intra or extra-axial hemorrhage. IMPRESSION: No mass or bleed or other significant acute process.
[2019-02-24] MEDS ORDERED: diphenhydrAMINE 50 MG/ML VIAL ONE (21:53)
[2019-02-24 21:58] LABS: Troponin I Less than 0.010 ng/mL (< 0.028)
[2019-02-24] MEDS ORDERED: methylPREDNISolone Sod Succ/PF 125 MG/2 ML VIAL ONE (22:38)
--- NOTE | 2019-02-24 23:23 | CT ---
EXAM: CT angiogram of the chest including 3-D rendering: HISTORY: Syncopal episode recent cardiac stents COMPARISON: None FINDINGS: There is adequate opacification of the pulmonary arteries. No evidence for aortic aneurysm or dissection. No convincing CT evidence for acute pulmonary embolism. Minimal pleural-based parenchymal changes in the lower lobes possibly mild subsegmental atelectasis. No evidence for mediastinal mass or adenopathy. No no evidence for pleural or pericardial effusion. The visualized upper abdomen is unremarkable. IMPRESSION: No convincing CT evidence for acute pulmonary embolism. Minimal pleural-based parenchymal changes in the lung bases bilaterally.
[2019-02-24 23:25] VITALS: BMI 23.6
[2019-02-25 01:00] LABS: Troponin I Less than 0.010 ng/mL (< 0.028)
[2019-02-25] MEDS ORDERED: Senokot S 8.6-50 MG TAB PO PRN (05:39)
[2019-02-25] MEDS ORDERED: diphenhydrAMINE 50 MG/ML VIAL IVP PRN (05:41)
[2019-02-25] MEDS: Betamethasone 0.1% Cream 15 GM TUBE TOP SCH ×2 (08:02→20:54)
[2019-02-25] MEDS: Amlodipine 10 MG TAB PO SCH (08:03)
[2019-02-25] MEDS: Carvedilol 3.125 MG TAB PO SCH ×2 (08:04→16:42)
[2019-02-25] MEDS: Clopidogrel Bisulfate 75 MG TAB PO SCH (08:04)
[2019-02-25] MEDS ORDERED: Hydrocortisone Valerate 0.2% Cream 60 gm Tube TOP SCH (09:00)
[2019-02-25] MEDS ORDERED: diphenhydrAMINE 25 MG CAP PO PRN (16:23)
[2019-02-25] MEDS: Acetaminophen 325 MG TAB PO PRN ×2 (16:42→20:55)
[2019-02-25 19:17] LABS: #Lymphocytes 1.4 thou/uL (1.20-3.40); #Monocytes 0.8 thou/uL (0.11-0.59); #Neutrophils 13.4 thou/uL (1.40-6.50); %Basophils 0.1 % (0.0-1.0); %Eosinophils 0.1 % (0.0-10.0); %Lymphocytes 8.8 % (21.0-51.0); %Monocytes 5.1 % (0.0-10.0); %Neutrophils 85.9 % (42.0-75.0); Hemoglobin 12.8 g/dL (14.0-18.0); Mean Corpuscular HGB CONC 33.2 g/dL (32.0-36.0); Mean Corpuscular Hemoglobin 30.6 pg (27.0-31.0); Mean Corpuscular Volume 92.2 fL (78.0-98.0); Platelet Count 266 thou/uL (130-400); RBC Distribution Width 12.8 % (11.5-14.5); Red Blood Cell (RBC) Count 4.17 mill/uL (4.70-6.10); White Blood Cell (WBC) Count 15.6 thou/uL (4.8-10.8)
[2019-02-25 19:35] LABS: Lactic Acid 2.4 mmol/L (0.5-2.2)
[2019-02-25 19:39] LABS: ALT (SGPT) 13 U/L (8-55); AST (SGOT) 12 U/L (5-34); Albumin 3.6 g/dL (3.4-4.8); Alkaline Phosphatase 89 U/L (40-150); Anion Gap 10 mmol/L (10-20); BUN (Urea Nitrogen) 15 mg/dL (8.4-25.7); Bilirubin, Total 0.3 mg/dL (0.2-1.2); Calc. Creatinine Clearance 64 mL/min (70-130); Calcium 9.1 mg/dL (7.8-10.44); Carbon Dioxide 28 mmol/L (23-31); Chloride 104 mmol/L (98-107); Estimated GFR-MDRD Greater than 90; Globulin 2.4 g/dL (2.4-3.5); Glucose 194 mg/dL (83-110); Potassium 3.8 mmol/L (3.5-5.1); Sodium 138 mmol/L (136-145)
--- NOTE | 2019-02-25 19:58 | HP ---
CHIEF COMPLAINT: Syncope. HISTORY OF PRESENT ILLNESS: Mr. Chávez is a 73-year-old man who presents to the ER after collapsing while in the shower. Per the patient, states, he has been dealing with a diffuse rash for the last week. He states he has been managing by taking very hot showers and recently obtained blessed olive oil from his local [facility] and was applying that when he said he suddenly passed out. The patient reports seeing his primary care physician late last week and was told he had "sugars." He was recommended to take his clothing and put it in a plastic bag fully sealed. The patient states the rash began after he was working on an old car. He had been painting the car all day and reports wearing some protective wear on his face. He took a shower afterwards and reports noting an oily residue on his skin as he showered. Later that evening, he developed redness and itching on his chest, anterior aspect of his arms, his abdomen and legs. Denies any itching whatsoever on the posterior thorax, but has had some itching behind his knees. The patient denies having any issues with his skin at baseline or having any reactions like this in the past. However, he states he used different materials and chemicals only. 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 He denies having any fevers, chills, or sweats. He does, however, report having progressive weakness in the legs and feeling overall fatigued. Denies having any nausea or vomiting. No abdominal pain or cramping. Has not had any changes with his vision. Denies having any respiratory difficulties. No cough or hemoptysis. No tongue or mouth swelling. No throat swelling or irritation. Denies any abdominal pain, but does report discomfort on his skin due to the rash that is alleviated with hot showers. He has continued to take hot showers while here in the hospital, also states topical steroids have been helpful. REVIEW OF SYSTEMS: Denies having any changes with his stools. Denies having any urinary symptoms. No hematuria or dysuria. No penile irritation or discharge. All other review of systems apart from those mentioned above in HPI are negative. PAST MEDICAL HISTORY: 1. Hypertension. 2. History of seizures. PAST SURGICAL HISTORY: Cardiac stents x3. SOCIAL HISTORY: Denies any alcohol use or smoking or illicit drug use. ALLERGIES: ASPIRIN AND PENICILLIN. CURRENT MEDICATIONS: 1. Atorvastatin. 2. Aspirin. 3. Amlodipine. 4. Acetaminophen. 5. Losartan. 6. . 7. Carvedilol. PHYSICAL EXAMINATION: GENERAL: The patient appears well developed, well nourished, and is in no acute distress. VITAL SIGNS: Temperature 98.7, pulse 93, respirations 20, O2 saturation 96% on room air, blood pressure 141/106. HEENT: Normocephalic and atraumatic. Pupils are equal, round, and reactive to light. Sclerae without icterus. Oropharynx is clear. NECK: Supple without lymphadenopathy. LUNGS: Clear to auscultation bilaterally. CARDIAC: Regular rate and rhythm. ABDOMEN: Soft, nontender. Nondistended. No guarding or rigidity. EXTREMITIES: Without edema. NEUROLOGIC: Alert and oriented x3. Normal affect. SKIN: Notable for diffuse erythematous blanching pruritic rash involving the anterior surfaces of the bilateral arms and anterior chest as well as abdomen. Also involving the anterior thighs and some circumferential lower legs, worse on the anterior aspect than posterior. No oozing. No vesicular changes. Skin is warm to touch. Some areas of excoriations but no open wounds. The skin on the hands bilaterally appear normal as well as on his face and neck. No erythema or edema of his lips or eyes or anywhere else on his face. LABORATORY DATA: Labs done yesterday showed a normal blood count. Platelets 259. D-dimer was elated at 2.88. Sodium 142, potassium mildly decreased at 3.4, chloride 107, carbon dioxide 25, anion gap 13, BUN 12, creatinine 0.94, GFR greater than 90, glucose 90, lactic acid 2, calcium 9.2, total bilirubin 0.7, AST 15, ALT 16, alkaline phosphatase 98, CK 115. Troponin negative x3. BNP 42. Prolactin 2.09. IMAGING DATA: 1. Brain CT showed no master bleed or other significant acute process. 2. Chest x-ray showed no active intrathoracic disease. 3. CT angiogram of the chest showed no definite evidence of PE. Minimal pleural-based parenchymal changes in the lung bases bilaterally. IMPRESSION AND PLAN: Mr. Chávez is a pleasant 73-year-old man, being admitted for management of the following. 1. Diffuse atopic dermatitis. The patient has been afebrile, but reports diffuse generalized weakness particularly in his legs, which has worsened since developing the rash. His skin is diffusely erythematous, blanching, and warm to touch. Unable to identify a specific area that may have caused a secondary infection. It appears he was exposed to some sort of chemical residue immediately before the rash began. We will continue with hydrocortisone and betamethasone. He has been started on IV Benadryl 25 mg twice daily as needed. We will add lactic acid and repeat laboratory studies today and see if there are any signs of infection or reason to begin antibiotics. Consult has been placed to Dr. Rubalcava for second opinion. 2. Syncope. The CT scan unremarkable. Possible patient may have had a vasovagal as he was taking a very hot shower at the time that this happened. His vital signs are stable. He is not hypotensive and remains afebrile, not tachycardic. He did have an elevated D-dimer and underwent a CT angiogram of the chest which was negative. We will continue to monitor. 3. Hypertension. We will resume his home medications and continue to monitor his blood pressure. 4. Gastrointestinal prophylaxis. 5. Full code status. His surrogate decision maker is Sania Chávez, his . The patient's case was discussed with Dr. Maier who agrees with plan of care as described above. Job ID: [id number]
[2019-02-25] MEDS ORDERED: Atorvastatin Calcium 40 MG TAB PO SCH (21:00)
[2019-02-25] MEDS ORDERED: Aspirin 81 mg Enteric Coated Tablet PO SCH (21:00)
[2019-02-26 05:07] LABS: #Eosinphils 0.1 thou/uL (0.0-0.7); #Monocytes 0.8 thou/uL (0.11-0.59); #Neutrophils 10.8 thou/uL (1.40-6.50); %Basophils 0.3 % (0.0-1.0); %Eosinophils 0.9 % (0.0-10.0); %Lymphocytes 14.7 % (21.0-51.0); %Monocytes 5.8 % (0.0-10.0); %Neutrophils 78.4 % (42.0-75.0); Mean Corpuscular HGB CONC 32.9 g/dL (32.0-36.0); Mean Corpuscular Hemoglobin 30.3 pg (27.0-31.0); Mean Corpuscular Volume 92.1 fL (78.0-98.0); Mean Platelet Volume 8.6 fL (7.4-10.4); Platelet Count 249 thou/uL (130-400); RBC Distribution Width 12.9 % (11.5-14.5); Red Blood Cell (RBC) Count 3.97 mill/uL (4.70-6.10); White Blood Cell (WBC) Count 13.8 thou/uL (4.8-10.8)
[2019-02-26 05:33] LABS: Anion Gap 8 mmol/L (10-20); BUN (Urea Nitrogen) 15 mg/dL (8.4-25.7); Calc. Creatinine Clearance 73 mL/min (70-130); Calcium 8.7 mg/dL (7.8-10.44); Carbon Dioxide 28 mmol/L (23-31); Chloride 105 mmol/L (98-107); Estimated GFR-MDRD Greater than 90; Glucose 106 mg/dL (83-110); Potassium 3.3 mmol/L (3.5-5.1); Sodium 138 mmol/L (136-145)
[2019-02-26 08:33] VITALS: BP 169/82; TEMP 98.5
[2019-02-26] MEDS ORDERED: Losartan 25 MG TAB PO SCH (09:00)
[2019-02-26] MEDS: Carvedilol 3.125 MG TAB PO SCH (09:42)
[2019-02-26] MEDS: Amlodipine 10 MG TAB PO SCH (09:42)
[2019-02-26] MEDS: Acetaminophen 325 MG TAB PO PRN (09:42)
[2019-02-26] MEDS: Clopidogrel Bisulfate 75 MG TAB PO SCH (09:43)
[2019-02-26] MEDS: Betamethasone 0.1% Cream 15 GM TUBE TOP SCH (09:43)
[2019-02-26] MEDS ORDERED: Potassium Chloride 20 MEQ TAB PO SCH (10:15)
--- NOTE | 2019-02-27 10:32 | DIS ---
DATE OF ADMISSION: 02/24/2019 DATE OF DISCHARGE: 02/26/2019 CONSULTING PHYSICIANS: None. DISCHARGE DIAGNOSES: 1. Diffuse contact dermatitis. 2. Vasovagal. 3. Hypertension. HOSPITAL COURSE: Mr. Chávez is a 73-year-old man who presented to the emergency room following a syncopal episode while taking a scalding hot shower to help alleviate diffuse contact dermatitis that he developed after sanding a vehicle with minimal protective care. There was clothing. He took a shower and noted there on the front of his body. He then developed persistent redness and pruritus involving the anterior thorax, anterior bilateral arms and thighs. He was seen by his primary care physician who told him it was due to sugars. The patient continued to have worsening, therefore began to apply Blessed olive oil that he obtained from his local [facility] and continued taking scalding hot showers as he states it temporally would alleviate his discomfort. While in the shower, he had a syncopal episode. He did not sustain any major injury. He did undergo imaging of the brain which was negative. The patient was started on steroids and Benadryl as well as topical creams, which have provided significant relief. He has had notable improvement since initial presentation. He was noted on laboratory studies to be hypokalemic and underwent replacement. Initially, his lactic acid was elevated at 2.4. He received IV fluids. White count was initially elevated at 15.6 and has improved to 13.8. All other investigations are unremarkable. He did have an elevated D-dimer of 2.[address] angiogram of the chest that showed no evidence of PE. On day of discharge, the patient is feeling significantly better and eager for discharge home. Patient did continue to take scalding hot showers while in hospital and was advised against doing so as this causes further erythema, irritation as well as dryness of the skin. No further syncopal episodes. REVIEW OF SYSTEMS: Patient denies having any headaches or dizziness. No chest pain, palpitations, or shortness of breath. No abdominal pain or cramping. He has been tolerating a regular diet and denies having any urinary symptoms or bowel changes. All other review of systems are negative. PHYSICAL EXAMINATION: GENERAL: Patient appears thin, well developed, in no acute distress. VITAL SIGNS: Temperature 98.5, pulse 73, respirations 18, O2 saturation 94% on room air, and blood pressure 169/82. HEENT: Normocephalic and atraumatic. Pupils are equal, round, and reactive to light. Sclerae without icterus. Oropharynx is clear. NECK: Supple. LUNGS: Clear to auscultation bilaterally. CARDIAC: Regular rhythm. ABDOMEN: Soft, nontender, and nondistended. Normoactive bowel sounds present. EXTREMITIES: No clubbing or edema. NEUROLOGIC: Alert and oriented x3. SKIN: Notable for slight erythema on the anterior thorax and abdomen as well as the bilateral thighs. Significantly improved from initial presentation. No sores or ulcerations. No skin desquamation, but he did have some areas of dryness involving the bilateral upper extremities. Some scaling of the skin evident. LABORATORY DATA: As mentioned above in HPI. IMAGING DATA: As mentioned above in HPI. CONDITION: Stable at discharge. ACTIVITY: As tolerated. DIET: Heart healthy. CONDITION: Stable at the time of discharge. DISCHARGE MEDICATIONS: Patient was given a prescription for diphenhydramine as well as betamethasone valerate topical cream. FOLLOWUP: Patient was advised to follow up with his primary care physician within 1 week to ensure he has continued improvement. DISPOSITION: Patient is medically cleared for discharge home on 02/26/2019. The patient's case was discussed with Dr. Maier who agrees with plan of care as described above. Patient has been briefly seen by Dr. Maier as well. Job ID: [id number]
== END 2019-02-26 11:32 | disposition home or self-care (01) ==
LOC: ERS 17:34 → 2SE 20:34
PROVIDERS: ADMIT Emergency Medicine; ATTEND Emergency Medicine
DX: L25.8 Unspecified contact dermatitis due to other agents (principal); R55 Syncope and collapse; I10 Essential (primary) hypertension; Z79.82 Long term (current) use of aspirin; Z79.899 Other long term (current) drug therapy; Z88.0 Allergy status to penicillin; Z88.8 Allergy status to other drugs, medicaments and biological substances
CPT/HCPCS: 70450; 71045; 71275; 80048; 80053 ×2; 82550; 83605 ×2; 83880; 84145; 84146; 84484 ×3; 85025 ×3; 85379; 93005; 94760; 96374; 96375; 96376; 99285; G0378 ×2; 36415; J1200; J2930; Q0163; Q9966

== ENCOUNTER 2019-10-14 07:40 | Inpatient (IN) | payer MEDICARE ==
[2019-10-14 08:20] LABS: #Basophils 0.1 thou/uL (0.0-0.2); #Eosinphils 0.1 thou/uL (0.0-0.7); #Lymphocytes 1.9 thou/uL (1.20-3.40); #Monocytes 0.4 thou/uL (0.11-0.59); %Eosinophils 2.4 % (0.0-10.0); %Lymphocytes 34.4 % (21.0-51.0); %Monocytes 7.8 % (0.0-10.0); %Neutrophils 53.4 % (42.0-75.0); Hemoglobin 15.4 g/dL (14.0-18.0); Mean Corpuscular HGB CONC 33.2 g/dL (32.0-36.0); Mean Corpuscular Hemoglobin 30.3 pg (27.0-31.0); Mean Corpuscular Volume 91.1 fL (78.0-98.0); Mean Platelet Volume 8.3 fL (7.4-10.4); Platelet Count 227 thou/uL (130-400); RBC Distribution Width 13.3 % (11.5-14.5); Red Blood Cell (RBC) Count 5.09 mill/uL (4.70-6.10); White Blood Cell (WBC) Count 5.5 thou/uL (4.8-10.8)
--- NOTE | 2019-10-14 08:24 | RAD ---
EXAM: Single view of the chest HISTORY: Dizziness COMPARISON: 02/24/2019 FINDINGS: Single view of the chest shows a normal sized cardiomediastinal silhouette. There is no brayden dence of consolidation, mass, or pleural effusion. The bones are unremarkable. IMPRESSION: No evidence of acute cardiopulmonary disease
--- NOTE | 2019-10-14 08:32 | CT ---
CT Head without IV contrast COMPARISON: 02/24/2019 HISTORY: Dizziness and hypertension. TECHNIQUE: Axial CT imaging at 5 mm intervals from vertex through skull base without contrast FINDINGS: There is no evidence of an acute infarction, hemorrhage, mass effect, or midline shift. There is decr eased attenuation seen in the periventricular white matter which is nonspecific but likely attributable to chronic small vessel ischemic changes. There is mild cerebral volume loss. The ventri cular system is normal in size, shape, and position for the degree of sulcal atrophy. Visualized paranasal sinuses are clear. Osseous structures appear intact. IMPRESSION: 1. No acute intracranial abnormality demonstrated. 2. Chronic small vessel ischemic changes and mild cerebral volume loss
[2019-10-14 08:42] LABS: ALT (SGPT) 11 U/L (8-55); AST (SGOT) 17 U/L (5-34); Albumin 4.3 g/dL (3.4-4.8); Alkaline Phosphatase 90 U/L (40-110); Anion Gap 12 mmol/L (10-20); BUN (Urea Nitrogen) 9 mg/dL (8.4-25.7); Bilirubin, Total 0.4 mg/dL (0.2-1.2); Calc. Creatinine Clearance 0 mL/min (70-130); Calcium 9.2 mg/dL (7.8-10.44); Carbon Dioxide 24 mmol/L (23-31); Chloride 107 mmol/L (98-107); Estimated GFR-MDRD 81; Globulin 2.8 g/dL (2.4-3.5); Glucose 93 mg/dL (83-110); Potassium 4.4 mmol/L (3.5-5.1); Protein, Total 7.1 g/dL (5.8-8.1); Sodium 139 mmol/L (136-145)
[2019-10-14] MEDS ORDERED: hydrALAZINE 20 MG/ML VIAL ONE (09:39)
[2019-10-14] MEDS ORDERED: Aspirin Chewable 81 MG TAB ONE (09:39)
[2019-10-14 10:17] LABS: Bilirubin Negative (Negative); Blood, Urine Negative (Negative); Clarity Clear (Clear); Glucose, Urine (Dipstick) Normal (Negative); Leukocyte Negative Leu/uL (Negative); Nitrite Negative (Negative); Protein, Urine (Dipstick) Negative (Neg-Trace); Urobilinogen Normal mg/dL (Less than 2)
[2019-10-14] MEDS ORDERED: Atropine Sulfate 1 mg/10 ml Syringe ONE (10:17)
[2019-10-14] MEDS ORDERED: Nitroglycerin 2% Ointment 1 INCH/1 GM Packet ONE (11:35)
[2019-10-14] MEDS ORDERED: Morphine 2 MG/ML SYRINGE SLOW IVP PRN (11:51)
[2019-10-14] MEDS ORDERED: Acetaminophen 325 MG TAB PO PRN (11:51)
[2019-10-14] MEDS ORDERED: Senokot S 8.6-50 MG TAB PO PRN (11:51)
[2019-10-14] MEDS ORDERED: Bisacodyl 10 MG SUPP PR PRN (11:51)
[2019-10-14] MEDS ORDERED: Nitroglycerin 0.4 MG TAB (25 Tab Bottle) SL PRN (11:51)
[2019-10-14] MEDS ORDERED: Ondansetron PF 4 MG/2 ML Vial IVP PRN (11:51)
[2019-10-14] MEDS ORDERED: Guaifenesin DM 100-10/5 ML UDCUP PO PRN (11:51)
[2019-10-14] MEDS ORDERED: Aspirin Chewable 81 MG TAB PO SCH (12:00)
[2019-10-14] MEDS ORDERED: Heparin 25,000 units/D5W 500 ML IVPB SCH (12:00)
[2019-10-14] MEDS ORDERED: Heparin 10,000 UNITS/ 10 ML VIAL SLOW IVP SCH (12:00)
[2019-10-14 12:12] LABS: Prothrombin Time 13.2 SEC (12.0-14.7)
[2019-10-14 12:13] LABS: PTT 22.4 SEC (22.9-36.1)
--- NOTE | 2019-10-14 12:32 | HP ---
REASON FOR ADMISSION: Unstable angina, hypertensive emergency. HISTORY OF PRESENTING ILLNESS: The patient gives history of feeling dizzy this morning. He was sleeping in a recliner. The son was about to go to work and he woke him up to lock the door. The patient was dizzy for nearly 4 minutes and finally was able to get up. He was not himself and was feeling very tired. Son drove him up to the ER. He checked his blood pressure at home, it was 189/103. He states he has not been taking any medications for the last 2-1/2 years. On arrival, the patient had a blood pressure of 221/114. He was placed on labetalol drip and as the systolic blood pressure was coming down to 150s, the patient started to have chest pain. He developed EKG changes from baseline with anterolateral T-wave inversions. No complaints of any weakness in any of the extremities. No cough or expectoration. No complaints of fever. No myalgias. No diarrhea. He had one bowel movement in the ER, which was loose after arrival. PAST MEDICAL AND SURGICAL HISTORY: History of coronary artery disease with prior three stents, has had a stent to LAD and RCA. Coronary angiogram done on 03/08/2018, by Dr. Figueroa showed patent stent to LAD. The small pinch diagonals were jailed by stent, which were unchanged from prior, stent to RCA was patent. There is no other significant coronary artery disease on this. His ejection fraction was 60%. The patient has had a prior angiogram done in January of 2015 with 2 stents placed to RCA and one to LAD. All the stents were drug-eluting stents. History of seizure disorder, is not on any medication. He had an episode of seizure 2 years back per the patient. He has had EEG done here which was normal. No prior surgeries. CURRENT MEDICATIONS: None. ALLERGIES: ALLERGIC TO PENICILLIN. PERSONAL HISTORY: Does not abuse alcohol or drugs. No history of smoking. He stays with his son, Bernard. Ambulates by himself. States he still works. FAMILY HISTORY: Mother in her 70s. He does not know the exact cause of her . Father when he was 8 years old from unknown cause. CODE STATUS: Full. Power of commercial attorney is his son, Mr. Wagner. REVIEW OF SYSTEMS: CONSTITUTIONAL: Negative for weight loss or gain, ability to conduct usual activities. SKIN: Negative for rash, itching. EYES: Negative for double vision, pain. ENT/MOUTH: Negative for nose bleeding, neck stiffness, pain, tenderness. CARDIOVASCULAR: Negative for palpitations, dyspnea on exertion, orthopnea. RESPIRATORY: Negative for shortness of breath, wheezing, cough, hemoptysis, fever or night sweats. GASTROINTESTINAL: Negative for poor appetite, abdominal pain, heartburn, nausea , vomiting, constipation, or diarrhea. GENITOURINARY: Negative for urgency, frequency, dysuria, nocturia. MUSCULOSKELETAL: Negative for pain, swelling. NEUROLOGIC/PSYCHIATRIC: Negative for anxiety, depression. ALLERGY/IMMUNOLOGIC: Negative for skin rash, bleeding tendency. PHYSICAL EXAMINATION: GENERAL: The patient is a 74-year-old male, who is currently in mild distress from chest pain. VITAL SIGNS: Current blood pressure is 156/74, on arrival blood pressure was 231/109, pulse 86 per minute, has dropped down to 58 at some point and is back up to 70 at present; temperature 98.7 degrees Fahrenheit; respiratory rate 20 per minute, saturating 99% on room air. NECK: Supple. No elevated JVD. HEENT: Eyes; extraocular muscles intact. Pupils reacting to light. Oral cavity, mucous membranes are moist. No exudates or congestion. CARDIOVASCULAR SYSTEM: S1 and S2 heard. Regular rhythm. RESPIRATORY SYSTEM: Air entry 1+ bilateral. No rales or rhonchi. ABDOMEN: Soft. Bowel sounds heard. No tenderness, rigidity, or guarding. EXTREMITIES: No peripheral edema or calf tenderness. VASCULAR SYSTEM: Peripheral pulses 1+ bilateral. No ischemic ulcerations or gangrene. CENTRAL NERVOUS SYSTEM: No gross focal deficits noted. The patient is alert, awake, oriented well. PSYCHIATRIC SYSTEM: The patient's mood is euthymic. No hallucinations or delusions. LABORATORY DATA: Chest x-ray done shows no acute cardiopulmonary disease. CT head without contrast done showed no acute intracranial abnormality. There is chronic small-vessel ischemic changes seen. Mild cerebral volume loss. EKG done at 8 a.m. shows normal sinus rhythm at 66 beats per minute. There are signs of LVH seen. Repeat EKG at 11 a.m. done when he developed chest pain shows normal sinus rhythm at 71 beats per minute. There is Q-wave seen in lead II and III. There is T- inversion seen from V2 to V6. UA is negative for any infection. First set of troponin are negative. Albumin 4.3. Liver enzymes within normal limits. Serum glucose 93. Electrolytes are stable. BUN 9, creatinine 1.0. Hemoglobin and hematocrit 15 and 46, platelet count 227, white count of 5.5, MCV is 91 with 53% neutrophils. CLINICAL IMPRESSION AND PLAN: The patient will be admitted to ICU for unstable angina with hypertensive emergency. He has received labetalol IV 20 mg x1, normal saline half a liter bolus, aspirin full dose, hydralazine 10 mg IV push, and atropine 0.5 mg IV push was given for bradycardia with heart rate dipping down to 50s with the patient complaining of chest pain. We will continue him on aspirin , Lipitor, will be on heparin drip per cardiovascular protocol, Lopressor 12.5 mg twice daily, lisinopril 2.5 mg daily, atorvastatin and Zetia will be added. He will be on nitropaste 1 inch q.8 hourly, normal saline at 70 mL/h. Echo with 2D Doppler will be obtained urgently and Dr. Lipscombs has been consulted from the ER. We will obtain a PT/INR stat and lipid profile in the morning. He will be kept n.p.o. for possible catheterization if needed. We will continue to closely monitor him in the ICU. Please note, the patient has not been taking any medication, although he has had 3 stents in his heart. He has not been taking any medications for the last 2 years per son. Job ID: [id number] MTDD
[2019-10-14 12:38] LABS: Hemoglobin 15.2 g/dL (14.0-18.0); Platelet Count 225 thou/uL (130-400)
[2019-10-14 13:56] VITALS: BMI 20.5
--- NOTE | 2019-10-14 15:54 | CON ---
DATE OF CONSULTATION: HISTORY OF PRESENT ILLNESS: The patient is a pleasant 74-year-old gentleman with a history of coronary artery disease, who presented with dizziness and developed an abnormal electrocardiogram. The patient has a long history of coronary artery disease, who has previously undergone PTCA and stent placement into the left anterior descending artery and right coronary artery. He underwent a repeat catheterization in February 2018 and was found to have patent stents. The patient has a long history of noncompliance. He has not been taking any of his medications. He presented to the emergency room with dizziness and found to be markedly hypertensive. He received IV medication, but he subsequently became hypotensive. The patient then developed chest discomfort. The patient denies having any present discomfort. PAST MEDICAL HISTORY: 1. Coronary artery disease. 2. Hypertension. 3. Dyslipidemia. 4. History of seizure disorder. PAST SURGICAL HISTORY: None ALLERGIES: PENICILLIN. FAMILY HISTORY: No strong family history of coronary artery disease. PHYSICAL EXAMINATION: GENERAL: This is a middle-aged gentleman, in no acute distress. VITAL SIGNS: Blood pressure 147/97. NECK: Showed no jugular venous distention. LUNGS: Clear to auscultation. HEART: Regular rate and rhythm. Normal S1 and S2. No murmurs. ABDOMEN: Nondistended. EXTREMITIES: Show no edema. VASCULAR: Radial pulses are 2+. LABORATORY DATA: Sodium 139, potassium 4.4, chloride 107, bicarbonate 24, BUN 9 , and creatinine 1.08. White blood cell count 5.5, hemoglobin 15.4, hematocrit 46.4, and platelets 227. IMAGING DATA: EKG; 1. Revealed normal sinus rhythm with left ventricular hypertrophy, nonspecific T-wave abnormality. 2. Revealed normal sinus rhythm with deep T-wave inversion suggestive of anterolateral ischemia. IMPRESSION: 1. Hypertensive crisis. 2. History of percutaneous transluminal coronary angioplasty and stent placement. 3. Dyslipidemia. 4. Noncompliance. PLAN: This gentleman presented with a hypertensive crisis. He received IV hydralazine. He became markedly hypotensive. The patient's blood pressure has been restored. He has had no further chest discomfort. We will discontinue the patient's heparin and follow this patient with you through his hospitalization. Critical care note, time 40 minutes. Job ID: [id number] [facility]
[2019-10-14 16:17] LABS: Troponin I 0.513 ng/mL (< 0.028)
[2019-10-14] MEDS: Nitroglycerin 2% Ointment 1 INCH/1 GM Packet TOP SCH ×2 (18:51→20:22)
[2019-10-14] MEDS: Sodium Chloride 0.9% 1,000 ML IV SCH (18:51)
[2019-10-14] MEDS: Famotidine/PF 20 mg/2ml Vial SLOW IVP SCH (20:22)
[2019-10-14] MEDS: Metoprolol Tartrate 25 MG TAB PO SCH (20:22)
[2019-10-14] MEDS ORDERED: Atorvastatin Calcium 40 MG TAB PO SCH (21:00)
[2019-10-14] MEDS ORDERED: Ezetimibe 10 MG TAB PO SCH (21:00)
[2019-10-14 23:30] VITALS: TEMP 98.6
[2019-10-15] MEDS ORDERED: Nitroglycerin 2% Ointment 1 INCH/1 GM Packet ONE (04:59)
[2019-10-15] MEDS ORDERED: Aspirin 325 mg Enteric Coated Tablet PO SCH (09:00)
[2019-10-15] MEDS ORDERED: Lisinopril 2.5 MG TAB PO SCH (09:00)
[2019-10-15] MEDS: Nitroglycerin 2% Ointment 1 INCH/1 GM Packet TOP SCH ×2 (12:20→16:32)
[2019-10-15] MEDS: Sodium Chloride 0.9% 1,000 ML IV SCH ×2 (12:20→17:53)
[2019-10-15] MEDS: Famotidine/PF 20 mg/2ml Vial SLOW IVP SCH (12:21)
[2019-10-15] MEDS: Metoprolol Tartrate 25 MG TAB PO SCH (12:21)
[2019-10-15 15:38] LABS: CKMB 6.3 ng/mL (0-6.6)
[2019-10-15 18:10] LABS: %Lymphocytes 18.7 % (21.0-51.0); %Monocytes 7.5 % (0.0-10.0); %Neutrophils 72.2 % (42.0-75.0); Hemoglobin 13.4 g/dL (14.0-18.0); Mean Corpuscular HGB CONC 33.2 g/dL (32.0-36.0); Mean Corpuscular Hemoglobin 30.1 pg (27.0-31.0); Mean Corpuscular Volume 90.5 fL (78.0-98.0); Mean Platelet Volume 8.6 fL (7.4-10.4); Platelet Count 218 thou/uL (130-400); RBC Distribution Width 13.2 % (11.5-14.5); Red Blood Cell (RBC) Count 4.45 mill/uL (4.70-6.10); White Blood Cell (WBC) Count 8.9 thou/uL (4.8-10.8)
[2019-10-15 18:11] LABS: #Basophils 0.1 thou/uL (0.0-0.2); #Eosinphils 0.1 thou/uL (0.0-0.7); #Lymphocytes 1.7 thou/uL (1.20-3.40); #Monocytes 0.7 thou/uL (0.11-0.59); #Neutrophils 6.4 thou/uL (1.40-6.50); %Basophils 0.9 % (0.0-1.0); %Eosinophils 0.7 % (0.0-10.0)
--- NOTE | 2019-10-15 18:22 | PDOC.HOSPP ---
- Subjective Encounter Date: 10/15/19 Encounter Time: 18:00 Subjective: f/u HTN urgency and NSTEMI but pt wishing to leave AMA today and not pursue further work up or intervention. - Objective Vital Signs & Weight: Weight Weight 138 lb 14.259 oz Most Recent Monitor Data Heart Rate from ECG 67 NIBP 154/72 NIBP BP-Mean 99 Respiration from ECG 16 SpO2 98 I&O: 10/14/19 10/15/19 10/16/19 06:59 06:59 06:59 Intake Total 679 240 Output Total 200 Balance 479 240 Result Diagrams: 10/15/19 04:00 10/14/19 08:08 Additional Labs: Laboratory Tests 10/14/19 10/14/19 10/14/19 08:08 11:53 15:31 Troponin I 0.015 Less than 0.010 0.513 H* 10/15/19 12:34 Troponin I 2.330 H* Radiology Reviewed by me: Yes (2D echo - pending, CT brain - no acute process) EKG Reviewed by me: Yes (Tele - No tracing) Hospitalist ROS - Medication Medications: Active Medications Generic Name Dose Route Start Last Admin Trade Name Freq PRN Reason Stop Dose Admin Aspirin 325 mg 10/15/19 09:00 10/15/19 12:21 Ecotrin PO Not Given DAILY [facility] Atorvastatin Calcium 40 mg 10/14/19 21:00 10/14/19 20:21 Lipitor PO 40 mg HS RUBEN Administration Famotidine 20 mg 10/14/19 21:00 10/15/19 12:21 Pepcid SLOW IVP Not Given Q12HR [facility] Sodium Chloride 1,000 mls @ 70 mls/hr 10/14/19 12:00 10/15/19 17:53 Normal Saline 0.9% IV Not Given .[id number] RUBEN Lisinopril 2.5 mg 10/15/19 09:00 10/15/19 12:21 Zestril PO Not Given DAILY [facility] Metoprolol Tartrate 12.5 mg 10/14/19 21:00 10/15/19 12:21 Lopressor PO Not Given BID [facility] Nitroglycerin 1 inch 10/14/19 14:00 10/15/19 16:32 Nitro-Bid 2% Ointment TOP 1 inch Q8HR RUBEN Administration - Exam General Appearance: NAD, awake alert Eye: PERRL, anicteric sclera ENT: normocephalic atraumatic, no oropharyngeal lesions Neck: supple, symmetric, no JVD, no thyromegaly Heart: RRR, no murmur, no gallops, no rubs, normal peripheral pulses Respiratory: CTAB, no wheezes, no rales, no ronchi Gastrointestinal: soft, non-tender, non-distended, normal bowel sounds Extremities: no cyanosis, no clubbing, no edema Skin: normal turgor, no lesions Neurological: cranial nerve grossly intact, no new deficit Musculoskeletal: normal tone, normal strength, no muscle wasting Psychiatric: normal affect, A&O x 3 Hosp A/P (1) NSTEMI (non-ST elevated myocardial infarction) Code(s): I21.4 - NON-ST ELEVATION (NSTEMI) MYOCARDIAL INFARCTION Status: Acute Plan: Continue ASA, Lovenox, Lipitor, Lisinopril/Metoprolol, Cardiology consulted for ? heart cath vs med mgmt (2) Hypertensive urgency Code(s): I16.0 - HYPERTENSIVE URGENCY Status: Acute Plan: Resolved, continue current BP regimen, serial BP monitoring (3) CAD (coronary artery disease) Code(s): I25.10 - ATHSCL HEART DISEASE OF [place] CORONARY ARTERY W/O ANG PCTRS Status: Chronic Plan: See above (4) Medical non-compliance Code(s): Z91.19 - PATIENT'S NONCOMPLIANCE W OTH MEDICAL TREATMENT AND REGIMEN Status: Chronic (5) Hypertension Code(s): I10 - ESSENTIAL (PRIMARY) HYPERTENSION Status: Chronic Qualifiers: Hypertension type: essential hypertension Qualified Code(s): I10 - Essential (primary) hypertension Plan: See above - Plan out of bed/ambulate, DVT proph w/SCDs Continue Lovenox 60mg sc BID Continue Metoprolol/Lisinopril Continue ASA daily Cardiology consult appreciated CM for dispo planning 2D echo pending
[2019-10-15] MEDS ORDERED: Enoxaparin Sodium 60 MG/0.6 ML SYRINGE SC SCH (21:00)
[2019-10-15] MEDS ORDERED: FLU VACC TS2019-20(65YR UP)/PF 180 MCG/0.5 ML SYRINGE IM ONE (21:00)
--- NOTE | 2019-10-16 05:53 | DIS ---
DATE OF ADMISSION: 10/14/2019 DATE OF DISCHARGE: 10/15/2019 DISCHARGE DIAGNOSES: 1. Non-ST elevation myocardial infarction, medically managed. 2. Hypertensive urgency, resolved. 3. Coronary artery disease, chronic. 4. Medical noncompliance. 5. Hypertension. CONSULTATIONS: Dr. Dean and Dr. Figueroa with Cardiology Service. PERTINENT LABORATORY AND X-RAY FINDINGS: Basic metabolic profile within normal limits. Troponin I ranged between 0.010 to 2.33. CBC within normal limits. Urinalysis negative. Portable chest x-ray dated 10/14/2019, showed no acute cardiopulmonary process. CT of the brain without contrast dated 10/14/2019, showed no acute intracranial process. Chronic ischemic white matter changes noted. HOSPITAL COURSE: The patient was initially admitted to the Critical Care Unit after presenting with hypertensive urgency requiring IV labetalol infusion with associated T-wave changes in the anterior lateral leads. The patient with history of medication noncompliance, treated with IV labetalol in addition to hydralazine. The patient's blood pressure improved with aggressive intervention and initiated on Lopressor 12.5 mg b.i.d. and lisinopril 2.5 mg daily. Serial cardiac biomarkers showed evidence of non-ST elevation myocardial infarction prompting the Cardiology evaluation. The patient did not wish to pursue cardiac catheterization and desired to leave against medical advice. Current recommendations are for dual antiplatelet therapy at a minimum including aspirin 81 mg daily and Plavix 75 mg daily. I have examined the patient at the time of discharge and discussed followup instructions. The patient verbalized understanding and agreement, ready for discharge, 10/15/2019. DISCHARGE MEDICATIONS: 1. Enteric-coated aspirin 81 mg p.o. daily. 2. Plavix 75 mg p.o. daily. 3. Lisinopril 2.5 mg p.o. daily. 4. Lopressor 12.5 mg p.o. b.i.d. 5. Lipitor 40 mg 1 tablet p.o. at bedtime. FOLLOWUP: The patient will follow up with his primary care provider, Dr. Randy Hilario, within 7 days of discharge. The patient may follow up with Dr. Figueroa or Dr. Dean and to call their office for appointment time and date. CONDITION ON DISCHARGE: Fair. ACTIVITY: Ad-zoë. DIET: Heart healthy. CODE STATUS: Full. DISPOSITION: To home, 10/15/2019. Job ID: [id number]
== END 2019-10-15 18:53 | disposition home or self-care (01) | DRG 281 ==
LOC: ERS 07:40 → ERHOLD 10:57 → CCU 13:35
PROVIDERS: ADMIT Internal Medicine; ATTEND Internal Medicine
DX: I21.4 Non-ST elevation (NSTEMI) myocardial infarction (principal); I16.1 Hypertensive emergency; I25.10 Atherosclerotic heart disease of native coronary artery without angina pectoris; I10 Essential (primary) hypertension; E78.5 Hyperlipidemia, unspecified; I16.0 Hypertensive urgency; Z95.5 Presence of coronary angioplasty implant and graft; Z88.0 Allergy status to penicillin; Z91.14 Patient's other noncompliance with medication regimen
CPT/HCPCS: 36415; 36416; 70450; 71045; 80053; 81003; 82553; 84484; 85025; 85610; 85730; 93005; 93306; 96361; 96374; 96375; 99292; J0360; J0461; J1644; S0028

== ENCOUNTER 2021-02-16 19:19 | Inpatient (IN) | payer MEDICARE ==
[~2021-02-16 19:19] MED LIST changes: -ISOVUE-370 76%-LOCM 1 ML ONE; +Iopamidol-370 76% 500 ML 1 ML ONE
[2021-02-16 19:50] LABS: #Basophils 0.1 thou/uL (0.0-0.2); #Eosinphils 0.1 thou/uL (0.0-0.7); #Monocytes 0.4 thou/uL (0.11-0.59); #Neutrophils 5.2 thou/uL (1.40-6.50); %Basophils 1.1 % (0.0-1.0); %Eosinophils 0.8 % (0.0-10.0); %Monocytes 5.1 % (0.0-10.0); %Neutrophils 67.1 % (42.0-75.0); Hemoglobin 15.9 g/dL (14.0-18.0); Mean Corpuscular HGB CONC 33.2 g/dL (32.0-36.0); Mean Corpuscular Volume 90.5 fL (78.0-98.0); Mean Platelet Volume 8.4 fL (7.4-10.4); Platelet Count 266 thou/uL (130-400); RBC Distribution Width 12.9 % (11.5-14.5); Red Blood Cell (RBC) Count 5.29 mill/uL (4.70-6.10); White Blood Cell (WBC) Count 7.7 thou/uL (4.8-10.8)
[2021-02-16 19:54] LABS: Prothrombin Time 12.7 sec (12.0-14.7)
[2021-02-16 19:55] LABS: PTT 28.7 sec (22.9-36.1)
[2021-02-16 19:58] LABS: INR-International Normal Ratio 0.9
[2021-02-16] MEDS ORDERED: Aspirin 325 MG TAB ONE (20:08)
[2021-02-16 20:15] LABS: ALT (SGPT) 7 U/L (8-55); AST (SGOT) 19 U/L (5-34); Alkaline Phosphatase 102 U/L (40-110); Anion Gap 13 mmol/L (10-20); BUN (Urea Nitrogen) 8 mg/dL (8.4-25.7); Bilirubin, Total 0.6 mg/dL (0.2-1.2); CK (CPK) 89 U/L (30-200); Calc. Creatinine Clearance 0 mL/min (70-130); Calcium 8.8 mg/dL (7.8-10.44); Carbon Dioxide 26 mmol/L (23-31); Chloride 107 mmol/L (98-107); Globulin 3.2 g/dL (2.4-3.5); Glucose 117 mg/dL (83-110); Potassium 4.5 mmol/L (3.5-5.1); Protein, Total 7.2 g/dL (5.8-8.1); Sodium 141 mmol/L (136-145)
[2021-02-16] MEDS ORDERED: Clopidogrel Bisulfate 300 MG TAB ONE (20:18)
[2021-02-16 20:55] LABS: Bilirubin Negative (Negative); Blood, Urine Negative (Negative); Clarity Clear (Clear); Glucose, Urine (Dipstick) Normal (Negative); Ketone, Urine Negative (Negative); Leukocyte Negative Leu/uL (Negative); Nitrite Negative (Negative); Protein, Urine (Dipstick) Negative (Neg-Trace); Specific Gravity, Urine 1.032 (1.002-1.036); Urobilinogen Normal mg/dL (Less than 2)
[2021-02-16] MEDS ORDERED: Labetalol HCl 100 MG/20 ML VIAL ONE (21:21)
[2021-02-16 23:17] LABS: Troponin I 0.021 ng/mL (< 0.028)
[2021-02-17 01:57] LABS: Troponin I 0.012 ng/mL (< 0.028)
[2021-02-17] MEDS ORDERED: Labetalol HCl 100 MG/20 ML VIAL SLOW IVP PRN ×2 (02:26→14:01)
[2021-02-17] MEDS ORDERED: hydrALAZINE 20 MG/ML VIAL SLOW IVP PRN ×2 (02:26→14:01)
[2021-02-17] MEDS ORDERED: Lorazepam 2 MG/ML VIAL SLOW IVP PRN (02:38)
[2021-02-17] MEDS ORDERED: Ondansetron PF 4 MG/2 ML Vial IVP PRN (02:51)
[2021-02-17] MEDS: Acetaminophen 325 MG TAB PO PRN (06:10)
[2021-02-17] MEDS ORDERED: Acetaminophen 325 MG TAB ONE (06:11)
[2021-02-17] MEDS ORDERED: hydrALAZINE 20 MG/ML VIAL ONE ×2 (06:28→07:49)
[2021-02-17 07:30] LABS: Hemoglobin A1c 5.9 % (4.0-6.0)
[2021-02-17 07:35] LABS: #Basophils 0.1 thou/uL (0.0-0.2); #Eosinphils 0.1 thou/uL (0.0-0.7); #Lymphocytes 1.8 thou/uL (1.20-3.40); #Monocytes 0.3 thou/uL (0.11-0.59); #Neutrophils 3.4 thou/uL (1.40-6.50); %Lymphocytes 31.7 % (21.0-51.0); %Monocytes 5.8 % (0.0-10.0); %Neutrophils 59.5 % (42.0-75.0); Hemoglobin 13.8 g/dL (14.0-18.0); Mean Corpuscular HGB CONC 31.5 g/dL (32.0-36.0); Mean Corpuscular Hemoglobin 28.7 pg (27.0-31.0); Mean Corpuscular Volume 91.1 fL (78.0-98.0); Mean Platelet Volume 8.4 fL (7.4-10.4); Platelet Count 252 thou/uL (130-400); Red Blood Cell (RBC) Count 4.79 mill/uL (4.70-6.10); White Blood Cell (WBC) Count 5.7 thou/uL (4.8-10.8)
[2021-02-17 07:43] LABS: Anion Gap 10 mmol/L (10-20); BUN (Urea Nitrogen) 8 mg/dL (8.4-25.7); Calc. Creatinine Clearance 66 mL/min (70-130); Calcium 8.3 mg/dL (7.8-10.44); Carbon Dioxide 27 mmol/L (23-31); Cardiac Risk 4.3 (Less than 4.5); Chloride 107 mmol/L (98-107); Cholesterol 170 mg/dl (< 200 Desired); Glucose 93 mg/dL (83-110); HDL Cholesterol 40 mg/dL (>60 Neg Risk); LDL Cholesterol, Calculated 119 mg/dL; Potassium 3.5 mmol/L (3.5-5.1); Sodium 140 mmol/L (136-145); Triglycerides 55 mg/dL (Less than 150)
[2021-02-17] MEDS ORDERED: Clopidogrel Bisulfate 75 MG TAB ONE (10:48)
[2021-02-17] MEDS: Clopidogrel Bisulfate 75 MG TAB PO SCH (10:57)
[2021-02-17] MEDS ORDERED: Lisinopril 2.5 MG TAB PO SCH (14:15)
[2021-02-17 16:01] VITALS: BMI 23.8
[2021-02-17] MEDS: Atorvastatin Calcium 40 MG TAB PO SCH (20:22)
[2021-02-18] MEDS: Acetaminophen 325 MG TAB PO PRN ×3 (02:19→22:03)
[2021-02-18 05:18] LABS: #Eosinphils 0.2 thou/uL (0.0-0.7); #Lymphocytes 2.2 thou/uL (1.20-3.40); #Monocytes 0.5 thou/uL (0.11-0.59); #Neutrophils 4.6 thou/uL (1.40-6.50); %Basophils 0.4 % (0.0-1.0); %Eosinophils 2.5 % (0.0-10.0); %Lymphocytes 28.9 % (21.0-51.0); %Monocytes 7.1 % (0.0-10.0); %Neutrophils 61.2 % (42.0-75.0); Hemoglobin 14.7 g/dL (14.0-18.0); Mean Corpuscular HGB CONC 32.3 g/dL (32.0-36.0); Mean Corpuscular Hemoglobin 29.4 pg (27.0-31.0); Mean Platelet Volume 8.4 fL (7.4-10.4); Platelet Count 265 thou/uL (130-400); White Blood Cell (WBC) Count 7.5 thou/uL (4.8-10.8)
[2021-02-18 05:37] LABS: Anion Gap 12 mmol/L (10-20); BUN (Urea Nitrogen) 9 mg/dL (8.4-25.7); Calc. Creatinine Clearance 59 mL/min (70-130); Calcium 8.4 mg/dL (7.8-10.44); Carbon Dioxide 23 mmol/L (23-31); Chloride 106 mmol/L (98-107); Glucose 92 mg/dL (83-110); Potassium 3.4 mmol/L (3.5-5.1); Sodium 138 mmol/L (136-145)
[2021-02-18] MEDS: Lisinopril 2.5 MG TAB PO SCH (08:24)
[2021-02-18] MEDS: Clopidogrel Bisulfate 75 MG TAB PO SCH (08:25)
[2021-02-18] MEDS ORDERED: levETIRAcetam 500 mg/5 ml Oral Solution PO SCH (13:45)
[2021-02-18] MEDS: levETIRAcetam 500 mg/5 ml Oral Solution PO SCH (21:59)
[2021-02-18] MEDS: Atorvastatin Calcium 40 MG TAB PO SCH (21:59)
[2021-02-19 04:57] LABS: #Eosinphils 0.1 thou/uL (0.0-0.7); #Lymphocytes 1.9 thou/uL (1.20-3.40); #Monocytes 0.5 thou/uL (0.11-0.59); #Neutrophils 5.3 thou/uL (1.40-6.50); %Basophils 0.3 % (0.0-1.0); %Eosinophils 1.3 % (0.0-10.0); %Lymphocytes 24.5 % (21.0-51.0); %Monocytes 6.2 % (0.0-10.0); %Neutrophils 67.7 % (42.0-75.0); Hemoglobin 14.7 g/dL (14.0-18.0); Mean Corpuscular HGB CONC 31.9 g/dL (32.0-36.0); Mean Corpuscular Hemoglobin 28.9 pg (27.0-31.0); Mean Corpuscular Volume 90.5 fL (78.0-98.0); Mean Platelet Volume 8.4 fL (7.4-10.4); Platelet Count 252 thou/uL (130-400); RBC Distribution Width 12.9 % (11.5-14.5); White Blood Cell (WBC) Count 7.8 thou/uL (4.8-10.8)
[2021-02-19 05:12] LABS: Anion Gap 14 mmol/L (10-20); BUN (Urea Nitrogen) 14 mg/dL (8.4-25.7); Calc. Creatinine Clearance 59 mL/min (70-130); Calcium 8.6 mg/dL (7.8-10.44); Carbon Dioxide 24 mmol/L (23-31); Chloride 103 mmol/L (98-107); Glucose 100 mg/dL (83-110); Potassium 3.7 mmol/L (3.5-5.1); Sodium 137 mmol/L (136-145)
[2021-02-19] MEDS: Acetaminophen 325 MG TAB PO PRN (07:40)
[2021-02-19] MEDS: Clopidogrel Bisulfate 75 MG TAB PO SCH (08:34)
[2021-02-19] MEDS: levETIRAcetam 500 mg/5 ml Oral Solution PO SCH (08:35)
[2021-02-19] MEDS: Lisinopril 2.5 MG TAB PO SCH (08:35)
[2021-02-19] MEDS ORDERED: HYDROcodone/Acetaminophen 5/325 mg Tablet PO PRN (10:38)
[2021-02-19 12:27] VITALS: BP 132/68; TEMP 98.3
== END 2021-02-19 13:06 | disposition left against medical advice (07) | DRG 65 ==
LOC: ERS 19:19 → ERHOLD 21:21 → 2SE 02-17 14:31
PROVIDERS: ADMIT Internal Medicine; ATTEND Family Medicine
DX: I63.9 Cerebral infarction, unspecified (principal); G81.91 Hemiplegia, unspecified affecting right dominant side; I16.1 Hypertensive emergency; I24.8 Other forms of acute ischemic heart disease; Z20.822 Contact with and (suspected) exposure to COVID-19; R29.701 NIHSS score 1; R29.810 Facial weakness; E78.5 Hyperlipidemia, unspecified; I10 Essential (primary) hypertension; G40.909 Epilepsy, unspecified, not intractable, without status epilepticus; I25.10 Atherosclerotic heart disease of native coronary artery without angina pectoris; R47.1 Dysarthria and anarthria; I08.1 Rheumatic disorders of both mitral and tricuspid valves; E04.1 Nontoxic single thyroid nodule; Z91.19 Patient's noncompliance with other medical treatment and regimen; Z88.0 Allergy status to penicillin; Z91.018 Allergy to other foods; Z79.899 Other long term (current) drug therapy; Z79.82 Long term (current) use of aspirin; Z79.02 Long term (current) use of antithrombotics/antiplatelets; Z95.5 Presence of coronary angioplasty implant and graft; Z87.891 Personal history of nicotine dependence; Z91.14 Patient's other noncompliance with medication regimen
CPT/HCPCS: 36415; 36416; 70450; 70496; 70498; 70551; 71045; 80048; 80053; 80061; 81003; 82550; 83036; 83735; 84484; 85025; 85610; 85730; 93005; 93306; 95712; 95819; 95957; 96374; 96376; J0360; J2405; Q9967

== ENCOUNTER 2021-06-29 22:58 | Inpatient (IN) | payer MEDICARE ==
[2021-06-30] MEDS: Sodium Chloride 0.9% 1,000 ML IV SCH ×4 (01:01→15:06)
[2021-06-30 02:17] VITALS: BMI 22.7
[2021-06-30 02:21] LABS: Troponin I 9.505 ng/mL (< 0.028)
[2021-06-30] MEDS ORDERED: Losartan 25 MG TAB PO SCH (09:00)
[2021-06-30] MEDS ORDERED: Clopidogrel Bisulfate 75 MG TAB PO SCH (09:00)
[2021-06-30] MEDS ORDERED: Amlodipine 10 MG TAB PO SCH (09:00)
[2021-06-30] MEDS ORDERED: Sodium Chloride 0.9% 1,000 ML IV SCH (09:30)
[2021-06-30] MEDS ORDERED: Ondansetron PF 4 MG/2 ML Vial IVP PRN (09:50)
[2021-06-30] MEDS ORDERED: Acetaminophen 650 MG Suppository PR PRN (09:50)
[2021-06-30] MEDS ORDERED: Iopamidol-370 76% 500 ML 1 ML ONE (10:01)
[2021-06-30] MEDS ORDERED: Labetalol HCl 100 MG/20 ML VIAL SLOW IVP PRN (16:01)
[2021-06-30] MEDS ORDERED: hydrALAZINE 20 MG/ML VIAL SLOW IVP PRN (16:01)
[2021-06-30] MEDS: Clopidogrel Bisulfate 75 MG TAB PO SCH ×2 (17:05→18:27)
[2021-06-30] MEDS: Amlodipine 10 MG TAB PO SCH ×2 (17:05→18:26)
[2021-06-30] MEDS: Losartan 25 MG TAB PO SCH ×2 (17:05→18:26)
[2021-06-30] MEDS ORDERED: Atorvastatin Calcium 40 MG TAB PO SCH (21:00)
[2021-06-30] MEDS: levETIRAcetam 500 MG TAB PO SCH (21:40)
[2021-07-01 05:11] LABS: #Eosinphils 0.2 thou/uL (0.0-0.7); #Lymphocytes 1.8 thou/uL (1.20-3.40); #Monocytes 0.6 thou/uL (0.11-0.59); %Basophils 0.5 % (0.0-1.0); %Eosinophils 2.7 % (0.0-10.0); %Lymphocytes 23.5 % (21.0-51.0); %Monocytes 7.5 % (0.0-10.0); %Neutrophils 65.8 % (42.0-75.0); Hemoglobin 13.8 g/dL (14.0-18.0); Mean Corpuscular Hemoglobin 31.1 pg (27.0-31.0); Mean Corpuscular Volume 91.5 fL (78.0-98.0); Mean Platelet Volume 8.5 fL (7.4-10.4); Platelet Count 212 thou/uL (130-400); RBC Distribution Width 13.1 % (11.5-14.5); Red Blood Cell (RBC) Count 4.42 mill/uL (4.70-6.10); White Blood Cell (WBC) Count 7.6 thou/uL (4.8-10.8)
[2021-07-01 05:42] LABS: Anion Gap 10 mmol/L (10-20); Carbon Dioxide 24 mmol/L (23-31); Chloride 109 mmol/L (98-107); Potassium 3.6 mmol/L (3.5-5.1); Sodium 139 mmol/L (136-145)
[2021-07-01 05:43] LABS: BUN (Urea Nitrogen) 7 mg/dL (8.4-25.7); Calc. Creatinine Clearance 74 mL/min (70-130); Calcium 8.6 mg/dL (7.8-10.44); Cardiac Risk 4.3 (Less than 4.5); Cholesterol 142 mg/dl (< 200 Desired); Glucose 95 mg/dL (83-110); HDL Cholesterol 33 mg/dL (>60 Neg Risk); LDL Cholesterol, Calculated 99 mg/dL; Triglycerides 50 mg/dL (Less than 150)
[2021-07-01] MEDS ORDERED: Losartan 25 MG TAB PO SCH (09:00)
[2021-07-01] MEDS ORDERED: Enoxaparin Sodium 40 MG/0.4 ML SYRINGE SC SCH (09:00)
[2021-07-01] MEDS ORDERED: Clopidogrel Bisulfate 75 MG TAB PO SCH (09:00)
[2021-07-01] MEDS ORDERED: Amlodipine 10 MG TAB PO SCH (09:00)
[2021-07-01] MEDS: levETIRAcetam 500 MG TAB PO SCH (10:56)
[2021-07-01 15:17] VITALS: BP 158/87
[2021-07-01 16:23] VITALS: TEMP 97.8
[2021-07-01] MEDS: Sodium Chloride 0.9% 1,000 ML IV SCH (17:36)
== END 2021-07-01 20:26 | DRG 64 ==
LOC: 2SE 23:59
PROVIDERS: ADMIT Student in an Organized Health Care Education/Training Program; ATTEND Internal Medicine
DX: I63.9 Cerebral infarction, unspecified (principal); I21.4 Non-ST elevation (NSTEMI) myocardial infarction; I21.19 ST elevation (STEMI) myocardial infarction involving other coronary artery of inferior wall; G81.91 Hemiplegia, unspecified affecting right dominant side; Z20.822 Contact with and (suspected) exposure to COVID-19; I16.0 Hypertensive urgency; I10 Essential (primary) hypertension; I25.10 Atherosclerotic heart disease of native coronary artery without angina pectoris; E78.5 Hyperlipidemia, unspecified; G40.909 Epilepsy, unspecified, not intractable, without status epilepticus; I08.1 Rheumatic disorders of both mitral and tricuspid valves; E04.1 Nontoxic single thyroid nodule; I73.9 Peripheral vascular disease, unspecified; R29.712 NIHSS score 12; Z91.14 Patient's other noncompliance with medication regimen; Z95.5 Presence of coronary angioplasty implant and graft; Z88.0 Allergy status to penicillin; Z88.8 Allergy status to other drugs, medicaments and biological substances; Z91.018 Allergy to other foods
CPT/HCPCS: 36415; 70450; 70551; 71275; 74174; 80048; 80061; 84484; 85025; 93306; 93880; 95712; 95819; 95957; J1650; Q9967

== ENCOUNTER 2021-07-03 19:03 | Emergency (ER) | payer MEDICARE ==
[2021-07-03 20:23] LABS: #Eosinphils 0.1 thou/uL (0.0-0.7); #Lymphocytes 1.5 thou/uL (1.20-3.40); #Monocytes 0.7 thou/uL (0.11-0.59); %Basophils 0.2 % (0.0-1.0); %Eosinophils 1.1 % (0.0-10.0); %Lymphocytes 13.1 % (21.0-51.0); %Monocytes 6.1 % (0.0-10.0); %Neutrophils 79.4 % (42.0-75.0); Hemoglobin 14.9 g/dL (14.0-18.0); Mean Corpuscular HGB CONC 34.1 g/dL (32.0-36.0); Mean Corpuscular Hemoglobin 31.4 pg (27.0-31.0); Mean Platelet Volume 8.5 fL (7.4-10.4); Platelet Count 240 thou/uL (130-400); RBC Distribution Width 13.2 % (11.5-14.5); Red Blood Cell (RBC) Count 4.76 mill/uL (4.70-6.10); White Blood Cell (WBC) Count 11.4 thou/uL (4.8-10.8)
[2021-07-03 20:49] LABS: ALT (SGPT) 25 U/L (8-55); AST (SGOT) 29 U/L (5-34); Albumin 3.4 g/dL (3.4-4.8); Alkaline Phosphatase 77 U/L (40-110); Anion Gap 15 mmol/L (10-20); BUN (Urea Nitrogen) 11 mg/dL (8.4-25.7); Bilirubin, Total 0.3 mg/dL (0.2-1.2); CK (CPK) 97 U/L (30-200); Calc. Creatinine Clearance 0 mL/min (70-130); Calcium 9.1 mg/dL (7.8-10.44); Carbon Dioxide 21 mmol/L (23-31); Chloride 105 mmol/L (98-107); Globulin 3.2 g/dL (2.4-3.5); Glucose 104 mg/dL (83-110); Potassium 4.3 mmol/L (3.5-5.1); Protein, Total 6.6 g/dL (5.8-8.1); Sodium 137 mmol/L (136-145)
[2021-07-03 20:57] LABS: Critical Call Chem Troponin I RESULT DECREASING
[2021-07-03 21:15] LABS: CKMB 1.4 ng/mL (0-6.6)
[2021-07-03 22:14] LABS: SARS-CoV-2 NAA Rapid Test Not Detected (NotDetected)
== END 2021-07-03 23:30 | disposition home or self-care (01) ==
LOC: ERS 19:03
DX: R55 Syncope and collapse (principal); Z20.822 Contact with and (suspected) exposure to COVID-19; I11.0 Hypertensive heart disease with heart failure; I50.9 Heart failure, unspecified; I25.10 Atherosclerotic heart disease of native coronary artery without angina pectoris; Z86.73 Personal history of transient ischemic attack (TIA), and cerebral infarction without residual deficits; Z79.899 Other long term (current) drug therapy
CPT/HCPCS: 70450; 71045; 80053; 82550; 82553; 84484; 85025; 93005; 99285; U0002; U0005; 36415

== ENCOUNTER 2023-03-30 13:17 | Emergency (ER) | payer MEDICARE, MEDICAID ==
[2023-03-30] MEDS ORDERED: niCARdipine 25 MG/10 ML SDV ONE ×2 (13:46→13:49)
[2023-03-30 14:26] LABS: Actual Bicarbonate (HCO3a) 19.7 mEq/L (22-28); Analyzer IN Cardio ER; Base Excess (BEa) -4.9 mEq/L (-2.0 to +3.0); Calcium, Ionized (arterial) 1.17 mmol/L (1.12-1.30); Carboxyhemoglobin (COHb) 0.2 gm% (0.0-3.0); Hematocrit-ABG 49 % (42.0-52.0); Hemoglobin (Hb) 16.6 g/dL (14.0-18.0); O2 Tension (PaO2), arterial 216.3 mmHg (> 70.0); Potassium - ABG Lab 3.27 mmol/L (3.70-5.30); pH, Arterial 7.357 (7.35-7.45)
[2023-03-30 14:26] LABS: #Basophils 0.1 thou/uL (0.0-0.2); #Monocytes 0.4 thou/uL (0.11-0.59); #Neutrophils 8.2 thou/uL (1.40-6.50); %Basophils 0.5 % (0.0-1.0); %Eosinophils 0.3 % (0.0-10.0); %Lymphocytes 12.5 % (21.0-51.0); %Monocytes 4.4 % (0.0-10.0); Hematocrit 47.3 % (42.0-52.0); Hemoglobin 15.3 g/dL (14.0-18.0); Mean Corpuscular HGB CONC 32.3 g/dL (32.0-36.0); Mean Corpuscular Hemoglobin 28.5 pg (27.0-31.0); Mean Corpuscular Volume 88.2 fl (78.0-98.0); Mean Platelet Volume 10.7 fL (7.4-10.4); Platelet Count 260 10x3/uL (130-400); RBC Distribution Width 14.2 % (11.5-14.5); Red Blood Cell (RBC) Count 5.36 mill/uL (4.70-6.10)
[2023-03-30 14:29] LABS: Puncture Site Right Radial
[2023-03-30 14:38] LABS: Prothrombin Time 13.5 sec (12.0-14.7)
[2023-03-30 14:39] LABS: PTT 27.4 sec (22.9-36.1)
[2023-03-30 15:09] LABS: ALT (SGPT) 11 U/L (8-55); AST (SGOT) 18 U/L (5-34); Alkaline Phosphatase 112 U/L (40-110); Anion Gap 13 mmol/L (10-20); BUN (Urea Nitrogen) 10 mg/dL (8.4-25.7); Bilirubin, Total 0.4 mg/dL (0.2-1.2); Calc. Creatinine Clearance 0 mL/min (70-130); Calcium 8.8 mg/dL (7.8-10.44); Carbon Dioxide 21 mmol/L (23-31); Chloride 109 mmol/L (98-107); Estimated GFR 52; Globulin 3.3 g/dL (2.4-3.5); Glucose 141 mg/dL (83-110); Potassium 3.5 mmol/L (3.5-5.1); Protein, Total 7.3 g/dL (5.8-8.1); Sodium 139 mmol/L (136-145)
[2023-03-30] MEDS ORDERED: Iopamidol-370 76% 500 ML MDV (1 ML CHARGE) ONE (15:09)
[2023-03-30 15:11] LABS: Acetaminophen Less than 10.0 mcg/mL (10.0-30.0); Alcohol Less than 10 mg/dL (Less than 10); Lipase 25 U/L (8-78); Magnesium 1.8 mg/dL (1.6-2.6); Salicylate Less than 8.0 mg/dL (15.0-30.0)
[2023-03-30] MEDS ORDERED: Aspirin 300 MG Suppository ONE (16:07)
== END 2023-03-30 16:51 ==
LOC: EDUNIT# → EDBD → ERS 13:17
DX: I63.9 Cerebral infarction, unspecified (principal); I10 Essential (primary) hypertension; G81.91 Hemiplegia, unspecified affecting right dominant side; R56.9 Unspecified convulsions
CPT/HCPCS: 31500; 36556; 51702; 70450; 70496; 70498; 71045; 80307; 82805; 82962; 83605; 83690; 83735; 83880; 84484; 85610; 85730; 93005; 94002; 96365; 96366; 96368; 96375; 99285; J1953; J2060; 36415; 36416; 80053; 84443; 85025; J2704; J3490; Q9967